=== PATIENT | female | born 1940 | race Caucasian/White ===

== ENCOUNTER 2019-09-14 15:43 | Outpatient (CLI) | payer MEDICARE, BC, SELFPAY ==
[2019-09-14 16:05] LABS: Basophils Absolute Auto 0.1 K/mm3 (0.0-0.1); Basophils Percent Auto 0.6 % (0.2-1.2); Eosinophils Absolute Auto 0.1 K/mm3 (0-0.3); Eosinophils Percent Auto 1.3 % (0-4.4); Hematocrit 43.9 % (37.0-47.0); Hemoglobin 14.2 g/dL (12.0-15.0); Immature Granulocyte Absolute 0.04 K/mm3 (0.00-0.031); Immature Granulocyte Percent A 0.5 % (0-0.5); Lymphocytes Percent Auto 21.2 % (18.3-44.2); Mean Corpuscular HGB Conc 32.3 g/dl (32-36); Mean Corpuscular Hemoglobin 29.2 pg (26-34); Mean Corpuscular Volume 90.3 fl (80-100); Mean Platelet Volume 12.5 fl (7.4-10.4); Monocytes Absolute Auto 0.7 K/mm3 (0.1-0.6); Monocytes Percent Auto 8.2 % (2.6-8.5); Neutrophils Absolute Auto 5.8 K/mm3 (1.3-6.7); Neutrophils Percent Auto 68.2 % (45.5-73.1); Platelet Count Result 141 k/mm3 (150-375); Red Blood Count 4.86 M/mm3 (4.2-5.4); Red Cell Distribution Width 13.6 % (11.5-14.5); White Blood Count 8.5 K/mm3 (4.5-10.0)
[2019-09-14 16:33] LABS: Iron 100 ug/dL (37-170)
[2019-09-14 16:35] LABS: Alanine Aminotransferase 14 U/L (4-35); Albumin Level 4.6 g/dL (3.5-5.1); Alkaline Phosphatase 100 U/L (38-126); Aspartate Amino Transferase 36 U/L (14-36); Bilirubin,Total 0.6 mg/dL (0.2-1.3); Blood Urea Nitrogen 31 mg/dL (7-17); Calcium 9.3 mg/dL (8.4-10.2); Carbon Dioxide 27 mmol/L (22-30); Chloride 99 mmol/L (98-107); Estimated Glomerular Filt Rate 54; Glucose 99 mg/dL (65-105); Lactate Dehydrogenase 408 U/L (313-618); Potassium 3.8 mmol/L (3.4-5.0); Sodium 139 mmol/L (137-145)
[2019-09-14 16:42] LABS: Percent Iron Saturation 24 % (20-50)
[2019-09-18 17:51] LABS: Platelet Antibody, Direct IgG NEGATIVE (NEGATIVE)
== END 2019-09-14 15:44 | disposition home or self-care (01) ==
PROVIDERS: PCP Internal Medicine; Visit Provider Internal Medicine Hematology & Oncology
DX: D69.59 Other secondary thrombocytopenia (principal)
CPT/HCPCS: 36415; 80053; 82607; 82728; 83540; 83550; 83615; 85025; 86023

== ENCOUNTER 2019-09-25 10:06 | Outpatient (CLI) | payer MEDICARE, BC, SELFPAY ==
--- NOTE | ~2019-09-25 | US_ITS ---
US abdomen complete EXAMINATION: US Abdomen Complete INDICATION: Thrombocytopenia PROCEDURE: Realtime High Resolution abdomen ultrasound. COMPARISON: No prior studies for comparison FINDINGS: Gallbladder within normal limits. No gallstones, pericholecystic fluid, gallbladder wall t hickening or biliary dilatation. Common bile duct measures 3 mm. Liver echotexture within normal limits without focal mass. Pancreas within normal limits. Pancreati c tail is obscured by bowel gas. Spleen is unremarkeable. Renal echotexture is within normal limits bilaterally without hydronephrosis, contour deforming mass or renal stone. Right kidney measures 9.9 cm. Left kidney measures 10.1 cm. There is atherosclerotic change of the aorta. No aneurysm.. Portal vein is patent. No sonographic Mur phy's sign indicated by the technologist. IMPRESSION: 1: Unremarkable abdominal ultrasound. Reviewed, dictated and finalized at location B.
== END 2019-09-25 10:07 | disposition home or self-care (01) ==
PROVIDERS: PCP Internal Medicine; Visit Provider Internal Medicine Hematology & Oncology
DX: D69.59 Other secondary thrombocytopenia (principal)
CPT/HCPCS: 76700

== ENCOUNTER 2019-12-31 10:35 | Outpatient (CLI) | payer MEDICARE, BC, SELFPAY ==
[2019-12-31 10:53] LABS: Basophils Percent Auto 0.5 % (0.2-1.2); Eosinophils Absolute Auto 0.1 K/mm3 (0-0.3); Eosinophils Percent Auto 1.1 % (0-4.4); Hemoglobin 13.9 g/dL (12.0-15.0); Immature Granulocyte Absolute 0.04 K/mm3 (0.00-0.031); Immature Granulocyte Percent A 0.5 % (0-0.5); Lymphocytes Absolute Auto 1.87 K/mm3 (0.9-3.2); Lymphocytes Percent Auto 21.2 % (18.3-44.2); Mean Corpuscular HGB Conc 32.3 g/dl (32-36); Mean Corpuscular Hemoglobin 28.7 pg (26-34); Mean Corpuscular Volume 88.8 fl (80-100); Mean Platelet Volume 11.8 fl (7.4-10.4); Monocytes Absolute Auto 0.6 K/mm3 (0.1-0.6); Monocytes Percent Auto 6.9 % (2.6-8.5); Neutrophils Absolute Auto 6.2 K/mm3 (1.3-6.7); Neutrophils Percent Auto 69.8 % (45.5-73.1); Platelet Count Result 156 k/mm3 (150-375); Red Blood Count 4.84 M/mm3 (4.2-5.4); Red Cell Distribution Width 13.7 % (11.5-14.5); White Blood Count 8.8 K/mm3 (4.5-10.0)
[2019-12-31 11:41] LABS: Lactate Dehydrogenase 442 U/L (313-618)
[2019-12-31 12:50] LABS: Folic Acid 8.7 ng/mL (2.76->20); Vitamin B12 > 1000.0 pg/mL (239-931)
== END 2019-12-31 10:36 | disposition home or self-care (01) ==
PROVIDERS: PCP Internal Medicine; Visit Provider Internal Medicine Hematology & Oncology
DX: D69.59 Other secondary thrombocytopenia (principal)
CPT/HCPCS: 36415; 82607; 82746; 83615; 85025

== ENCOUNTER 2020-01-04 14:32 | Outpatient (CLI) | payer MEDICARE, BC, SELFPAY ==
[2020-02-11 14:50] LABS: Platelet Antibody, Direct IgG NEGATIVE
== END 2020-01-04 14:33 | disposition home or self-care (01) ==
PROVIDERS: PCP Internal Medicine; Visit Provider Internal Medicine Hematology & Oncology
DX: D69.59 Other secondary thrombocytopenia (principal)
CPT/HCPCS: 36415; 86023

== ENCOUNTER 2020-04-07 10:28 | Outpatient (CLI) | payer MEDICARE, BC, SELFPAY ==
[2020-04-07 10:45] LABS: Basophils Percent Auto 0.5 % (0.2-1.2); Eosinophils Absolute Auto 0.1 K/mm3 (0-0.3); Eosinophils Percent Auto 1.2 % (0-4.4); Hematocrit 44.8 % (37.0-47.0); Hemoglobin 14.2 g/dL (12.0-15.0); Immature Granulocyte Absolute 0.02 K/mm3 (0.00-0.031); Immature Granulocyte Percent A 0.3 % (0-0.5); Lymphocytes Absolute Auto 1.57 K/mm3 (0.9-3.2); Lymphocytes Percent Auto 20.5 % (18.3-44.2); Mean Corpuscular HGB Conc 31.7 g/dl (32-36); Mean Corpuscular Hemoglobin 28.5 pg (26-34); Mean Platelet Volume 12.5 fl (7.4-10.4); Monocytes Absolute Auto 0.5 K/mm3 (0.1-0.6); Monocytes Percent Auto 6.6 % (2.6-8.5); Neutrophils Absolute Auto 5.4 K/mm3 (1.3-6.7); Neutrophils Percent Auto 70.9 % (45.5-73.1); Platelet Count Result 155 k/mm3 (150-375); Red Blood Count 4.98 M/mm3 (4.2-5.4); Red Cell Distribution Width 13.9 % (11.5-14.5); White Blood Count 7.7 K/mm3 (4.5-10.0)
[2020-04-07 13:41] LABS: Alanine Aminotransferase 18 U/L (4-35); Albumin Level 4.1 g/dL (3.5-5.1); Alkaline Phosphatase 93 U/L (38-126); Anion Gap 3 mmol/L (8-16); Aspartate Amino Transferase 37 U/L (14-36); Bilirubin,Total 0.5 mg/dL (0.2-1.3); Blood Urea Nitrogen 21 mg/dL (7-17); Carbon Dioxide 37 mmol/L (22-30); Chloride 102 mmol/L (98-107); Estimated Glomerular Filt Rate > 60; Glucose 95 mg/dL (65-105); Potassium 3.7 mmol/L (3.4-5.0); Sodium 142 mmol/L (137-145)
[2020-04-07 15:48] LABS: Folic Acid 10.4 ng/mL (2.76->20); Vitamin B12 > 1000.0 pg/mL (239-931)
== END 2020-04-07 10:29 | disposition home or self-care (01) ==
LOC: ANHLAB 10:29
PROVIDERS: PCP Internal Medicine; Visit Provider Internal Medicine Hematology & Oncology
DX: D69.59 Other secondary thrombocytopenia (principal)
CPT/HCPCS: 36415; 80053; 82607; 82746; 85025

== ENCOUNTER → 2020-08-16 09:28 | Outpatient (CLI) | payer MEDICARE, BC, SELFPAY ==
--- NOTE | ~2020-08-16 | CT_ITS ---
EXAMINATION: CT cervical spine wo con DATE: 08/16/2020 09:47 INDICATION: Cervical myelopathy. TECHNIQUE: Computed tomography (CT) of the cervical spine was performed without intravenous contrast. Automated exposure control and iterative reconstruction technique were employed. The dose-length pro duct was 139.30 mGy-cm. COMPARISON: Cervical spine radiographs 06/27/2009, head CT 06/27/2020 FINDINGS: There is a shunt catheter that extends from the third ventricle to the cervical subarachnoi d space. There are laminectomies at C1 and C2. There are changes of suboccipital decompression cranio basia. Bone alignment is normal. There is mildly decreased disc height at C4-C5 and C5-C6 and moderate ly decreased disc height at C6-C7. The following disc levels are specifically discussed: C2-C3: There is no uncovertebral joint osteoarthritis. There is mild right and severe left facet join t osteoarthritis. There is mild left neural foraminal stenosis. There is no central canal stenosis. C3-C4: There is mild left uncovertebral joint osteoarthritis. There is mild right and moderate left f acet joint osteoarthritis. There is mild left neural foraminal stenosis. There is mild central canal stenosis. C4-C5: There is mild right and moderate left uncovertebral joint osteoarthritis. There is moderate ri ght and severe left facet joint osteoarthritis. There is mild bilateral neural foraminal stenosis. Th ere is mild central canal stenosis. C5-C6: There is severe bilateral uncovertebral joint osteoarthritis. There is moderate right and mi re left facet joint osteoarthritis. There is moderate right and mild left neural foraminal stenosis. There is moderate central canal stenosis. C6-C7: There is severe right and moderate left uncovertebral joint osteoarthritis. There is moderate right and severe left facet joint osteoarthritis. There is mild bilateral neural foraminal stenosis. There is mild central canal stenosis. C7-T1: There is no uncovertebral joint osteoarthritis. There is severe bilateral facet joint osteoart hritis. There is mild bilateral neural foraminal stenosis. There is no central canal stenosis. IMPRESSION: 1. Moderate cervical spondylosis. Reviewed, dictated and finalized at location A.
== END ==
PROVIDERS: Visit Provider Psychiatry & Neurology Neurology
DX: G95.9 Disease of spinal cord, unspecified (principal); M47.813 Spondylosis without myelopathy or radiculopathy, cervicothoracic region; M48.03 Spinal stenosis, cervicothoracic region
CPT/HCPCS: 72125

== ENCOUNTER 2020-10-07 12:07 | Outpatient (CLI) | payer MEDICARE, BC, SELFPAY ==
[2020-10-07 12:33] LABS: Basophils Percent Auto 0.3 % (0.2-1.2); Eosinophils Absolute Auto 0.1 K/mm3 (0-0.3); Eosinophils Percent Auto 1.3 % (0-4.4); Hematocrit 43.1 % (37.0-47.0); Hemoglobin 13.7 g/dL (12.0-15.0); Immature Granulocyte Absolute 0.04 K/mm3 (0.00-0.031); Immature Granulocyte Percent A 0.5 % (0-0.5); Lymphocytes Percent Auto 22.8 % (18.3-44.2); Mean Corpuscular HGB Conc 31.8 g/dl (32-36); Mean Corpuscular Hemoglobin 28.5 pg (26-34); Mean Corpuscular Volume 89.8 fl (80-100); Mean Platelet Volume 12.7 fl (7.4-10.4); Monocytes Absolute Auto 0.7 K/mm3 (0.1-0.6); Monocytes Percent Auto 7.8 % (2.6-8.5); Neutrophils Absolute Auto 5.9 K/mm3 (1.3-6.7); Neutrophils Percent Auto 67.3 % (45.5-73.1); Platelet Count Result 145 k/mm3 (150-375); Red Cell Distribution Width 14.3 % (11.5-14.5); White Blood Count 8.8 K/mm3 (4.5-10.0)
[2020-10-07 16:38] LABS: Anion Gap 9 mmol/L (8-16); Blood Urea Nitrogen 26 mg/dL (7-17); Calcium 10.1 mg/dL (8.4-10.2); Carbon Dioxide 31 mmol/L (22-30); Chloride 98 mmol/L (98-107); Estimated Glomerular Filt Rate 54; Glucose 85 mg/dL (65-110); Potassium 4.1 mmol/L (3.4-5.0); Sodium 138 mmol/L (137-145)
[2020-10-07 17:36] LABS: Vitamin B12 > 1000.0 pg/mL (239-931)
[2020-10-07 21:18] LABS: Folic Acid 8.4 ng/mL (2.76->20)
== END 2020-10-07 12:08 | disposition home or self-care (01) ==
LOC: ANHLAB 12:12
PROVIDERS: Visit Provider Internal Medicine Hematology & Oncology
DX: D69.59 Other secondary thrombocytopenia (principal)
CPT/HCPCS: 36415; 80048; 82607; 82746; 85025

== ENCOUNTER 2021-07-10 11:06 | Outpatient (CLI) | payer MEDICARE, BC, SELFPAY ==
[2021-07-10 11:20] LABS: Basophils Percent Auto 0.4 % (0.2-1.2); Eosinophils Absolute Auto 0.1 K/mm3 (0-0.3); Eosinophils Percent Auto 1.4 % (0-4.4); Hematocrit 46.3 % (37.0-47.0); Immature Granulocyte Absolute 0.04 K/mm3 (0.00-0.031); Immature Granulocyte Percent A 0.5 % (0-0.5); Lymphocytes Absolute Auto 1.38 K/mm3 (0.9-3.2); Lymphocytes Percent Auto 17.7 % (18.3-44.2); Mean Corpuscular HGB Conc 30.2 g/dl (32-36); Mean Corpuscular Hemoglobin 27.9 pg (26-34); Mean Corpuscular Volume 92.4 fl (80-100); Mean Platelet Volume 12.8 fl (7.4-10.4); Monocytes Absolute Auto 0.7 K/mm3 (0.1-0.6); Monocytes Percent Auto 8.3 % (2.6-8.5); Neutrophils Absolute Auto 5.6 K/mm3 (1.3-6.7); Neutrophils Percent Auto 71.7 % (45.5-73.1); Platelet Count Result 164 k/mm3 (150-375); Red Blood Count 5.01 M/mm3 (4.2-5.4); Red Cell Distribution Width 14.6 % (11.5-14.5); White Blood Count 7.8 K/mm3 (4.5-10.0)
[2021-07-10 16:45] LABS: Alanine Aminotransferase 11 U/L (4-35); Albumin Level 4.6 g/dL (3.5-5.1); Alkaline Phosphatase 126 U/L (38-126); Anion Gap 7 mmol/L (8-16); Aspartate Amino Transferase 30 U/L (14-36); Bilirubin,Total 0.5 mg/dL (0.2-1.3); Blood Urea Nitrogen 23 mg/dL (7-17); Calcium 9.7 mg/dL (8.4-10.2); Carbon Dioxide 35 mmol/L (22-30); Chloride 100 mmol/L (98-107); Estimated Glomerular Filt Rate > 60; Glucose 95 mg/dL (65-110); Potassium 3.5 mmol/L (3.4-5.0); Sodium 142 mmol/L (137-145)
[2021-07-10 18:05] LABS: Vitamin B12 > 1000.0 pg/mL (239-931)
== END 2021-07-10 11:07 | disposition home or self-care (01) ==
PROVIDERS: Visit Provider Internal Medicine Hematology & Oncology
DX: D69.59 Other secondary thrombocytopenia (principal)
CPT/HCPCS: 36415; 80053; 82607; 85025

== ENCOUNTER 2022-07-06 11:31 | Outpatient (CLI) | payer MEDICARE, BC, SELFPAY ==
[2022-07-06 12:11] LABS: Basophils Percent Auto 0.2 % (0.2-1.2); Eosinophils Absolute Auto 0.1 K/mm3 (0-0.3); Eosinophils Percent Auto 0.6 % (0-4.4); Hematocrit 40.3 % (37.0-47.0); Immature Granulocyte Absolute 0.01 K/mm3 (0.00-0.031); Immature Granulocyte Percent A 0.1 % (0-0.5); Lymphocytes Absolute Auto 1.89 K/mm3 (0.9-3.2); Lymphocytes Percent Auto 22.7 % (18.3-44.2); Mean Corpuscular HGB Conc 32.3 g/dl (32-36); Mean Corpuscular Hemoglobin 28.8 pg (26-34); Mean Corpuscular Volume 89.2 fl (80-100); Mean Platelet Volume 12.4 fl (7.4-10.4); Monocytes Absolute Auto 0.6 K/mm3 (0.1-0.6); Monocytes Percent Auto 6.6 % (2.6-8.5); Neutrophils Absolute Auto 5.8 K/mm3 (1.3-6.7); Neutrophils Percent Auto 69.8 % (45.5-73.1); Platelet Count Result 165 k/mm3 (150-375); Red Blood Count 4.52 M/mm3 (4.2-5.4); Red Cell Distribution Width 13.8 % (11.5-14.5); White Blood Count 8.3 K/mm3 (4.5-10.0)
[2022-07-06 12:44] LABS: Alanine Aminotransferase 24 U/L (6-35); Albumin Level 4.6 g/dL (3.5-5.1); Alkaline Phosphatase 96 U/L (38-126); Anion Gap 6 mmol/L (8-16); Aspartate Amino Transferase 38 U/L (14-36); Bilirubin,Total 0.8 mg/dL (0.2-1.3); Blood Urea Nitrogen 23 mg/dL (7-17); Calcium 9.3 mg/dL (8.4-10.2); Carbon Dioxide 32 mmol/L (22-30); Chloride 101 mmol/L (98-107); Estimated Glomerular Filt Rate 60; Glucose 92 mg/dL (65-110); Potassium 3.4 mmol/L (3.4-5.0); Sodium 139 mmol/L (137-145)
== END 2022-07-06 11:32 | disposition home or self-care (01) ==
LOC: ANHLAB 11:33
PROVIDERS: Visit Provider Internal Medicine Hematology & Oncology
DX: D69.59 Other secondary thrombocytopenia (principal)
CPT/HCPCS: 36415; 80053; 82607; 85025

== ENCOUNTER 2024-06-22 10:52 | Outpatient (CLI) | payer MEDICARE, BC, SELFPAY ==
--- NOTE | ~2024-06-22 | US_ITS ---
EXAMINATION: US retroperitoneal comp DATE: 06/22/2024 11:21 INDICATION: Stage III chronic kidney disease TECHNIQUE: Multiple ultrasound grayscale images of the kidneys were obtained. COMPARISON: 09/25/2019 FINDINGS: The right kidney measures 8.9 x 3.6 x 4.6 cm. The left kidney measures 8.4 x 4.1 x 4.0 cm. The kidney s demonstrate normal echogenicity. 1.2 cm anechoic right renal cyst. There is no hydronephrosis in ei ther kidney. No stones identified. The bladder is normal. IMPRESSION: 1. 1.2 cm right renal cyst. Otherwise normal kidneys with no hydronephrosis. Reviewed, dictated and finalized at location A.
== END 2024-06-22 10:53 | disposition home or self-care (01) ==
LOC: MICIMG 10:54
PROVIDERS: PCP Internal Medicine; Visit Provider Specialist
DX: N28.1 Cyst of kidney, acquired (principal); N18.30 Chronic kidney disease, stage 3 unspecified
CPT/HCPCS: 76770

== ENCOUNTER 2024-06-22 12:02 | Outpatient (CLI) | payer MEDICARE, BC, SELFPAY ==
--- OUTSIDE RECORDS SUMMARY | 2024-06-22 13:25 | XMS_ITS | Referral Summary ---
Author Organization [facility] [address] [place] [id number] Care Team Providers Care Facility Maintenance Supervisor Name Role Phone Joao Rizo MD Primary Care Provide r Allergies No known active allergies Medications amLODIPine (NORVASC) 10 mg tablet 1 Active atorvastatin (LIPITOR) 80 mg tablet 1 Active C,E,zinc,copper [id number] (Ocuvite Adult 50 Plus) 250-5-1 mg capsule Ocuvite 1 TAB DAILY 0 Active calcium carbonate-vitam in D3 1500 mg (600 mg elemental) -200 units per tablet Calcium 600 1 TAB 2 TIMES DAILY 0 Active clopidogreL (PLAVIX) 75 mg tablet 1 Active vitamin E87-rpufl acid 0.5-1 mg tablet Vitamin B12 500mcg TK 1 Gummie PO QD Active hydroCHLOROthia zide (HYDRODIURIL) 25 mg tablet 1 Active mirtazapine (REMERON) 30 mg tablet [address] (PROTONIX) 40 mg EC tablet 1 Active pneumococcal 23-valent (Pneumovax-23) 25 mcg/0.5 mL vaccine Pneumovax-23 25 mcg/0.5 mL injection solution Active sertraline (ZOLOFT) 100 mg tablet 1 Active propranoloL (INDERAL) 20 mg tablet Take 1 tablet (20 mg total) by mouth daily 30 tablet 11 3 Active Active Problems Problem Noted Date Diagnosed Date Tremor Immunizations Immunization Administration Dates Next Due Influenza, Trivalent, Adjuvanted, Intramuscular 12/26/2018 Influenza, Trivalent, High D ose, Split, Preservative Free, Intramuscular 12/06/2016 Influenza, Trivalent, IM (MDV) 12/09/2018 Influenza, Unspecified 12/10/2019,12/11/2017 ZOSTER Recombinant 05/19/2019,02/04/2019 Social History Tobacco Use Types Packs/Day Years Used Date Smoking Tobacco: Former Cigarettes Smokeless Tobacco: Never Tobacco Cessation:Counseling Given: No Comments:quite 25 yrs ago Alcohol Use Standard Drinks/Week Comments No 0 (1 standard drink = 0.6 oz pur e alcohol) AUDIT-C Answer Date Recorded Q1: How often do you have a drink containing alc ohol? Never 11/02/2020 Average Number of Drinks Not on file 021 Frequency of Binge Drinking Not on file 10/10 Personal Safety Answer Date Recorded Getting School Help Needed Not on file 05/06 Comments Unknown Sex and Gender Information Value Date Recorded Sex Assigned at Not on file Legal Sex Female 6:45 AM [employer] Gender Identity Not on file Sexual Orientation Not on file Occupation Industry Job Start Date Job End Date Retired Not on file Not on file Not on file Last Filed Vital Signs Vital Sign Reading Time Taken Comments Blood Pressure 150/87 10/12/2022 11:17 AM CDT Pulse 67 10/12/2022 11:17 AM CDT Temperature - - Respiratory Rate - - Oxygen Saturation 93% 10/12/2022 11:17 AM CDT Inhaled Oxygen Concentration - - Weight 68.5 kg (151 lb) 10/12/2022 11:17 AM CDT Height 162.6 cm (5' 4 ) 10/12/2022 11:17 AM CDT Body Mass Index 25.92 10/12/2022 11:17 AM CDT Plan of Treatment Not on file Insurance MEDICARE BLUE TRADITIONAL OOS MEDICARE BLUE TRADITIONAL OOS Care Teams Facility Maintenance Supervisor Relationship Specialty Start Date End Date Joao Rizo MD [id number] [facility] [address] [place] [address] PCP - General Internal Medicine 11/21/17
--- OUTSIDE RECORDS SUMMARY | 2024-06-22 13:25 | XMS_ITS | CONTINUITY OF CARE DOCUMENT ---
Author Name zen reinierchary Address Unknown Organization [facility] Address [address] [place] [address] Phone [phone] Care Team Providers Care Supervisor [employer] Name Role Phone Mc Thomas MD Unavailable [phone] WILLIAN BETANCUR, GUY Unavailable [phone] GUY RIZO MD Unavailable [phone] PROBLEMS Condition Status Date Provider Notes Carotid artery stenosis, 50-69% LILLY active Mc Thomas MD Dyslipidemia active Mc Thomas MD Hypertension active Mc Thomas MD Parkinson's disease active Russell Villa rg Thrombocytopenia active Russell Haynes Leg edema, bilateral active Diana Ventimieddie efren BRASS SORTER ENCOUNTERS Date Type Provider Location Encounter Diag nosis - In-person encounter Office Visit Mc Thomas MD [place] [facility] - In-person encounter Office Visit Mc Thomas MD [facility] - In-person encounter Office Visit Mc Thomas MD [facility] - In-person encounter Office Visit Mc Thomas MD [facility] Leg edema, bilateral - In-person encounter Office Visit Mc Thomas MD [facility] - In-person encounter Office Visit Mc Thomas MD [facility] Thrombocytopenia - In-person encounter Office Visit Mc Thomas MD [facility] - In-person encounter Office Visit Mc Thomas MD [place] [facility] Carotid artery stenosis, 50-69% RICADyslipidemiaHyperten sionParkinson's disease VITAL SIGNS Date Observation Value Provider Body Mass Index (Ratio) 24.71 kg/m2 Carlos Alberto Garcia blood pressure, diastolic 58 mm[Hg] [facility], systolic 118 mm[Hg] Shelia [facility] oxygen saturation, oximetry 98 % [facility] respiratory rate E&M 12 /min [facility] pulse rate 65 /min [facility] weight E&M 144 [lb_av] [facility] height E&M 64 [in_i] [facility] blood pressure, cuff size regular [employer] Body Mass Index (Ratio) 26.95 kg/m2 Lucho Maxwellinari blood pressure, diastolic 92 mm[Hg] Melissa nkLogic blood pressure, systolic 154 mm[Hg] Yola kLog pulse rate 62 /min [facility] blood pressure, cuff size regular [facility] blood pressure, diastolic 92 mm[Hg] Clov[facility] rret blood pressure, systolic 154 mm[Hg] Jar sandip oxygen saturation, oximetry 98 % Alvaro respiratory rate E&M 12 /min weight E&M 157 [lb_av] Alvaro height E&M 64 [in_i] Alvaro y Body Mass Index (Ratio) 26.88 kg/m2 Skip Angulo blood pressure, diastolic 91 mm[Hg] Melquiades Landrum blood pressure, systolic 145 mm[Hg] Sarah Landrum blood pressure, cuff size regular Melquiades Landrum pulse rate 67 /min Adina Landrum respiratory rate E&M 20 /min Adina Landrum oxygen saturation, oximetry 98 % Adina Landrum height E&M 64 [in_i] Adina Landrum weight E&M 156.6 [lb_av] Adina Landrum Body Mass Index (Ratio) 27.80 kg/m2 Francisco Gee blood pressure, cuff size regular Ri jenni Roger blood pressure, diastolic 78 mm[Hg] Ri jenni Roger blood pressure, systolic 131 mm[Hg] Ced deana Roger oxygen saturation, oximetry 97 % Kya Roger respiratory rate E&M 16 /min Gabriel Roger pulse rate 63 /min Kya sierra weight E&M 162 [lb_av] Kya Campbell son height E&M 64 [in_i] Kya sierra Body Mass Index (Ratio) 29.01 kg/m2 Rozina Hall blood pressure, diastolic 83 mm[Hg] Melissa nkLogic blood pressure, systolic 159 mm[Hg] Yola kLogic blood pressure, cuff size regular Sa ra Kauffman blood pressure, diastolic 83 mm[Hg] Sa ra Kauffman blood pressure, systolic 159 mm[Hg] Marga a Kauffman oxygen saturation, oximetry 94 % Caty Kauffman respiratory rate E&M 17 /min Caty Si ms pulse rate 62 /min Caty Kauffman weight E&M 169 [lb_av] Caty Kauffman height E&M 64 [in_i] Caty Kauffman Body Mass Index (Ratio) 30.21 kg/m2 Lyle Haynes blood pressure, cuff size regular Clovis Napier RN blood pressure, diastolic 64 mm[Hg] Clovis Napier RN blood pressure, systolic 140 mm[Hg] Reagan Napier RN oxygen saturation, oximetry 93 % Reagan Napier respiratory rate E&M 22 /min Reagan Irizarry [facility] pulse rate 64 /min Reagan Napier weight E&M 176 [lb_av] Reagan [facility] Body Mass Index (Ratio) 30.21 kg/m2 Lyle Haynes blood pressure, diastolic 74 mm[Hg] Yovany arzate Nat blood pressure, systolic 136 mm[Hg] Susanne eri Johns oxygen saturation, oximetry 96 % Janellecarito Johns pulse rate 63 /min Janelle Lian Cain weight E&M 176 [lb_av] Janelle Lian Cain height E&M 64 [in_i] Janelle Lian Cain Body Mass Index (Ratio) 29.04 kg/m2 Lyle dunawayer Ivy blood pressure, resting Yes Mc Thomas MD blood pressure, diastolic 76 mm[Hg] Marlys Vazquez blood pressure, systolic 152 mm[Hg] Estefani Vazquez oxygen saturation, oximetry 90 % Williams Vazquez respiratory rate E&M 18 /min Heidi Vazquez pulse rate 65 /min Williams zaidi weight E&M 169.2 [lb_av] Williams lozano height E&M 64 [in_i] Williams zaidi ALLERGIES No Known Drug Allergies RESULTS Date Observation Value Provider Reference Range Interpretation Location LDL cholesterol, serum 83 mg/dL Russell Haynes vitamin D 25-hydroxy, serum 35.1 ng/mL [facility] thyroid stimulating hormone, serum 0.953 u[IU]/mL [facility] platelet count 152 10*3/mm3 [facility] platelet count 152 10*3/uL [facility] red blood cell distribution width 15.2 % [facility] mean corpuscular hemoglobin concentration, RBC 31.5 g/dL [facility] mean corpuscular hemoglobin, RBC 28.2 pg [facility] mean corpuscular volume, RBC 89.5 fL [facility] hematocrit, blood 45.1 % [facility] hemoglobin, blood 14.2 g/dL [facility] erythrocyte (RBC) count 5.04 10*6/mm3 [facility] leukocyte count, blood 7.7 10*3/mm3 [facility] triglyceride, serum, fasting 99 mg/dL [facility] HDL cholesterol, serum 90 mg/dL [facility] cholesterol, serum 202 mg/dL [facility] protein, total, serum 7.5 g/dL [facility] albumin, serum 4.4 g/dL [facility] bilirubin, serum, total 0.60 mg/dL [facility] alkaline phosphatase, serum 106 1/L [facility] alanine aminotransferase (SGPT), serum 9 1/L [facility] aspartate aminotransferase (SGOT), serum 26 1/L [facility] calcium, serum 10.3 mg/dL [facility] blood glucose, random 91 mg/dL [facility] creatinine, serum 0.75 mg/dL [facility] urea nitrogen, blood 22 mg/dL [facility] carbon dioxide, serum, total 33 mmol/L [facility] chloride, serum 100 mmol/L [facility] potassium, serum 38 mmol/L [facility] sodium, serum 142 mmol/L [facility] LDL cholesterol, serum 92 mg/dL [facility] HISTORY OF MEDICATION USE Medication Status Instructions Dates Provider Indications Com ments furosemide 20 mg tablet active Take 1 tablet by mouth once a day Mc Thomas MD furosemide 40 mg tablet completed - Mc Thomas MD losartan 100 mg tablet active TAKE 1 TABLET DAILY Yumiko Tristan RN clopidogrel 75 mg tablet active TAKE 1 TABLET DAILY [employer] losartan 100 mg tablet completed Take 1 tablet by mouth once a day - [facility] mg tablet completed Take 1 tab let by mouth once a day - Mc Thomas MD atorvastatin 80 mg tablet active TAKE 1 TABLET DAILY [employer] clopidogrel 75 mg tablet completed Take 1 tablet once a day - Alvaro New pantoprazole 40 mg tablet,delayed release (DR/EC) active 1 tablet once a day Williams Vazquez OCUVITE ADULT FORMULA CAPS active once a day Williams Vazquez cetirizine 10 mg tablet active once a day Williams Vazquez atorvastatin 80 mg tablet completed Take one tablet daily - [facility] calcium carbonate 600 mg calcium (1,500 mg) tablet active 1 tablet by mouth once a day Williams Vazquez sertraline 100 mg tablet active 1.5 tablet once a day Williams Vazquez mirtazapine 30 mg tablet active 1 tablet once a day Williams Vazquez hydrochlorothiazide 25 mg tablet completed 1 tablet once a day - Mc Thomas MD propranolol 20 mg tablet completed 1 tablet three times a day - Diana DEE carbidopa-levodopa 25-250 mg tablet active 1 tablet three times a day Williams Vazquez amlodipine 10 mg tablet completed 1 tablet once a day - Diana DEE SOCIAL HISTORY Date Observation Value Provider drug use no Carlos Alberto Garcia alcohol use no Carlos Alberto Garcia smoking status Never smoker Carlos Alberto Garcia drug use no Mc Thomas MD alcohol use no Mc Thomas MD smoking status Never smoker Mc Olivares social history reviewed E&M revi ewed - no changes required Mc Thomas MD smoking status Never smoker Adina Landrum drug use no Diana Ventimig efren [place] alcohol use no Diana Ventimig efren [place] social history E&M S moking History: Misael strong is a former smoker. Mc Thomas MD social history reviewed E&M revi ewed - no changes required Mc Thomas MD smoking, year quit 1985 Kya Roger cigarette use yes Kya Neetu rspretty smoking status Former smoker Kya bravo social history E&M S moking History: Misael strong is a former smoker. Hoda Hall social history reviewed E&M revi ewed - no changes required Hoda Hall cigarette use yes Caty Kauffman smoking status Former smoker Caty Gonzalezs smoking, year quit 1985 [facility] cigarette use yes [facility] smoking status Former smoker Russell [facility] social history reviewed E&M revi ewed - no changes required Russell Ivy smoking, year quit 1985 Janelle oliveroson-Ant cigarette use yes Janelle Juárez -Ant smoking status Former smoker Janelle Mehrdad on-Ant social history reviewed E&M revi ewed - no changes required Janelle Johns social history E&M Smoking Histo ry: Misael strong is a former smoker. Mc Thomas MD social history reviewed E&M revi ewed - no changes required Mc Thomas MD smoking, year quit 1985 Williams Vazquez cigarette use yes Williams lozano smoking status Former smoker Williams Carson FAMILY HISTORY Family Member Condition Full Brother Family History of Hy pertension: Father Family History of Co ronary Artery Disease: Father Family History of Hy pertension: INSURANCE PROVIDERS Payer name Policy type / Coverage type [place] [employer] ID [facility] [id number] 1 [place] Medicare [id number] ADVANCE DIRECTIVES Name Date DISCUSSED - NO DECISION MADE TREATMENT PLAN Date Name Performer [id number],S, Rocco Angulo [id number],B,L E venous ultrasound on 03/27/2022 showed no evidence of a deep vein thrombosis of the lower extremities bilaterally and significant venous insufficiency of the great saphenous vein bilaterally. At this time, she reports improvment in her swelling after stopping amlodipine. Rocco Angulo [id number],SMc MD [id number],SMc MD [id number],SMc MD [id number],C, H er updated medication list for this problem includes: Atorvastatin 80 Mg Tablet (Atorvastatin) ..... Take 1 tablet daily Diana Ramos [facility] [id number],C,w orsening over the last few months. She denies any pain with ambulation. May be secondary to venous insufficiency. Her last echo 2 years ago did suggest some diastolic dysfunction. Will update labs and echo to determine if r/t CHF. She will also have standing venous doppler to look for venous insufficiency. Meds adjusted as noted above. Will f/u post testing or sooner if needed. If diastolic dysfunction consider addition of Jardiance of Farxiga for LE edema O rders: 9 9214 MOD 30-39min (CPT-61718) Diana Ventimiglia [facility] [id number],C, O tracey doing well. Denies chest pain or SOB. Carotid duplex was normal. Continues on current medications. Diana Ramos [facility] [id number],S,B P at goal. She however, has bilateral LE edema may be r/t CCB. will stop amlodopin and transition to losartan B P today: 131/78 P rior BP: 159/83 (02/15/2021) The following medications were removed from the medication list: Amlodipine 10 Mg Tablet (Amlodipine) ..... 1 tablet once a day Propranolol 20 Mg Tablet (Propranolol) ..... 1 tablet three times a day Her updated medication list for this problem includes: Losartan 50 Mg Tablet (Losartan) ..... Take 1 tablet by mouth once a day Hydrochlorothiazide 25 Mg Tablet (Hydrochlorothiazide) ..... 1 tablet once a day Diana Ramos [facility] [id number],S, H er updated medication list for this problem includes: Atorvastatin 80 Mg Tablet (Atorvastatin) ..... Take 1 tablet daily [facility] [id number],C, B P today: 159/83 P rior BP: 140/64 (01/25/2020) Labs Reviewed: C reat: 0.75 (08/11/2018) C hol: 202 (08/11/2018) HDL: 90 (08/11/2018) LDL: 83 (12/28/2019) T (08/11/2018) Her updated medication list for this problem includes: Hydrochlorothiazide 25 Mg Oral Tablet (Hydrochlorothiazide) ..... One tab daily Propranolol Hcl 20 Mg Oral Tablet (Propranolol hcl) ..... 1 tab 3 times daily Amlodipine Besylate 10 Mg Oral Tablet (Amlodipine besylate) ..... One tab. daily Hoda Hall [id number],S, S ees neurology. Hoda Hall [id number],Hoda Reese [id number],S,O tracey doing well. Denies chest pain or SOB. Carotid duplex was normal. Continues on current medications. Hoda Hall Cardiology:will repeat carotid d [facility]liverio [facility]:This visi t has been a part of the consistent, comprehensive, and ongoing management of the chronic medical condition(s) listed above for the patient. Her updated medication list for this problem includes: Atorvastatin 80 Mg Tablet (Atorvastatin) ..... Take 1 tablet daily [facility]:This visi t has been a part of the consistent, comprehensive, and ongoing management of the chronic medical condition(s) listed above for the patient. BP today: 118/58 P rior BP: 154/92 (04/29/2023) Labs Reviewed: C reat: 0.75 (08/11/2018) C hol: 202 (08/11/2018) HDL: 90 (08/11/2018) LDL: 83 (12/28/2019) T (08/11/2018) The following medications were removed from the medication list: Hydrochlorothiazide 25 Mg Tablet (Hydrochlorothiazide) ..... 1 tablet once a day Her updated medication list for this problem includes: Furosemide 20 Mg Tablet (Furosemide) ..... Take 1 tablet by mouth once a day Furosemide 40 Mg Tablet (Furosemide) Losartan 100 Mg Tablet (Losartan) ..... Take 1 tablet daily [facility]:will resu me lasix 20 mg once daily and stop hydrochlorothiazide [facility]: H er updated medication list for this problem includes: Atorvastatin 80 Mg Tablet (Atorvastatin) ..... Take 1 tablet daily [facility]: B P today: 154/92 P rior BP: 145/91 (04/11/2022) Labs Reviewed: C reat: 0.75 (08/11/2018) C hol: 202 (08/11/2018) HDL: 90 (08/11/2018) LDL: 83 (12/28/2019) T (08/11/2018) Her updated medication list for this problem includes: Losartan 100 Mg Tablet (Losartan) ..... Take 1 tablet daily Hydrochlorothiazide 25 Mg Tablet (Hydrochlorothiazide) ..... 1 tablet once a day [facility]:She has h x of moderate right carotid stenosis. We reviewed carotid duplex and echo. [facility]:Overall d oing well, No CP, SOB. No neurological events. Occasional leg swelling but she tolerates it well. She has hx of moderate right carotid stenosis. We reviewed carotid duplex and echo. [facility] Rocco Angulo Cardiology:LE venous ultrasound on 03/27/2022 showed no evidence of a deep vein thrombosis of the lower extremities bilaterally and significant venous insufficiency of the great saphenous vein bilaterally. At this time, she reports improvment in her swelling after stopping amlodipine. Rocco Angulo Cardiology Mc Thomas MD Cardiology Mc Thomas MD Cardiology Mc Thomas MD Cardiology: H er updated medication list for this problem includes: Atorvastatin 80 Mg Tablet (Atorvastatin) ..... Take 1 tablet daily Diana Richard [facility] Cardiology:worsening over the last few months. She denies any pain with ambulation. May be secondary to venous insufficiency. Her last echo 2 years ago did suggest some diastolic dysfunction. Will update labs and echo to determine if r/t CHF. She will also have standing venous doppler to look for venous insufficiency. Meds adjusted as noted above. Will f/u post testing or sooner if needed. If diastolic dysfunction consider addition of Jardiance of Farxiga for LE edema O rders: 9 9214 MOD 30-39min (CPT-71370) Diana Ramos [facility] Cardiology: O verall doing well. Denies chest pain or SOB. Carotid duplex was normal. Continues on current medications. Diana Ramos [facility] Cardiology:BP at goa l. She however, has bilateral LE edema may be r/t CCB. will stop amlodopin and transition to losartan B P today: 131/78 P rior BP: 159/83 (02/15/2021) The following medications were removed from the medication list: Amlodipine 10 Mg Tablet (Amlodipine) ..... 1 tablet once a day Propranolol 20 Mg Tablet (Propranolol) ..... 1 tablet three times a day H er updated medication list for this problem includes: Losartan 50 Mg Tablet (Losartan) ..... Take 1 tablet by mouth once a day Hydrochlorothiazide 25 Mg Tablet (Hydrochlorothiazide) ..... 1 tablet once a day Diana Ramos [facility] Cardiology: H er updated medication list for this problem includes: Atorvastatin 80 Mg Tablet (Atorvastatin) ..... Take 1 tablet daily [facility]: B P today: 159/83 P rior BP: 140/64 (01/25/2020) Labs Reviewed: C reat: 0.75 (08/11/2018) C hol: 202 (08/11/2018) HDL: 90 (08/11/2018) LDL: 83 (12/28/2019) T (08/11/2018) Her updated medication list for this problem includes: Hydrochlorothiazide 25 Mg Oral Tablet (Hydrochlorothiazide) ..... One tab daily Propranolol Hcl 20 Mg Oral Tablet (Propranolol hcl) ..... 1 tab 3 times daily Amlodipine Besylate 10 Mg Oral Tablet (Amlodipine besylate) ..... One tab. daily [facility] Cardiology: S ees neurology. [facility] Cardiology [facility]oda [facility] eyer Cardiology:Overall d oing well. Denies chest pain or SOB. Carotid duplex was normal. Continues on current medications. [facility] Cardiology:Plt: 147 (11/11/2018) -> 121 (08/25/2019) -> 132 (12/28/2019) Per PCP. Russell Haynes Cardiology:She is no t sure if she is taking Lipitor 40mg or 80mg daily. Recommend to take 80mg daily. CHOL: 180 (12/28/2019) LDL: 92 (12/28/2019) HDL: 84 (12/28/2019) T (12/28/2019) Russell [facility] Cardiology:BP today: 140/64 P rior BP: 136/74 (01/07/2019) Her updated medication list for this problem includes: Hydrochlorothiazide 25 Mg Oral Tablet (Hydrochlorothiazide) ..... One tab daily Propranolol Hcl 20 Mg Oral Tablet (Propranolol hcl) ..... 1 tab 3 times daily Amlodipine Besylate 10 Mg Oral Tablet (Amlodipine besylate) ..... One tab. daily [facility] Cardiology:Carotid d uplex showed no significant change from last year (50-69% stenosis of the LILLY). Will obtain f/u duplex in a year. [facility] Cardiology:LDL was 9 2 and it is recommend to increase Lipitor to 80mg daily to achieve goal of 70 or less. Pt will discuss this with her PCP, Dr. Rizo. Her updated medication list for this problem includes: Atorvastatin Calcium 40 Mg Oral Tablet (Atorvastatin calcium) ..... 1 tab once daily [facility] Cardiology:BP today: 136/74 P rior BP: 152/76 (12/02/2017) Her updated medication list for this problem includes: Hydrochlorothiazide 25 Mg Oral Tablet (Hydrochlorothiazide) ..... One tab daily Propranolol Hcl 20 Mg Oral Tablet (Propranolol hcl) ..... 1 tab 3 times daily Amlodipine Besylate 10 Mg Oral Tablet (Amlodipine besylate) ..... One tab. daily [facility] Cardiology:Carotid d uplex showed no change from last year (50-69% stenosis of the LILLY). Will schedule her for yearly f/u duplex. [facility] Cardiology:Sees neurology. Miya romero [facility] Cardiology:BP today: 152/76 Her updated medication list for this problem includes: Hydrochlorothiazide 25 Mg Oral Tablet (Hydrochlorothiazide) ..... One tab daily Propranolol Hcl 20 Mg Oral Tablet (Propranolol hcl) ..... 1 tab 3 times daily Amlodipine Besylate 10 Mg Oral Tablet (Amlodipine besylate) ..... One tab. daily Russell Haynes Cardiology:She was r ecently started on Atorvastatin. Goal LDL < 70. Russell Haynes Cardiology:50-69% st enosis LILLY. F/u carotid duplex in 1 year. Russell Haynes Date Name Carotid Duplex Bilat eral Complete Echo Carotid Duplex Bilat eral Complete Echo Carotid Duplex Bilat eral Complete Echo HEPATIC FUNCTION MINAYA EL RPM (remote patient monitoring) LIPID PANEL Venous Doppler Bilat eral LE - Reflux Complete Echo CBC (INCLUDES DIFF/P LT) PROBNP, N TERMINAL BASIC METABOLIC PANE L W/EGFR Carotid Duplex Bilat eral Complete Echo Complete Echo Carotid Duplex Bilat eral Carotid Duplex Bilat eral Carotid Duplex Bilat eral Complete Echo HISTORY OF PROCEDURES Procedure Date Procedure Name Provider Procedure Notes S tatus Complex e/m visit add on Mc Thomas MD completed EKG Mc Thomas MD completed EKG Mc Thomas MD completed EKG Mc Thomas MD completed EKG Mc Thomas MD completed EKG Mc Thomas MD completed EKG Mc Thomas MD completed
--- OUTSIDE RECORDS SUMMARY | 2024-06-22 13:25 | XMS_ITS ---
Author Organization [facility] Office Address [address] [facility] [address] [facility] [address] [place] [address] Care Team Providers Care Franchise Specialist Name Role Phone Elliott Abel Unavailable [phone] SINDY DORSEY Unavailable [phone] PROBLEMS Problem Type ICD Code Onset Dates Problem Status W/U Status Risk SNOMED Code Notes Problem Chronic kidney disease, stage 3 unspecified (N18.30) Active confirmed Chronic kidney disease stage 3 (disorder) (400780327) Problem Essential hypertension (I10) Active confirmed Essential hypertension (92921342) Problem CAD (coronary artery disease) (I25.10) Active confirmed Coronary artery disease (42196519) Problem Disorder of mineral metabolism, 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 Disorder of mineral metabolism (13359955) Problem Cerebral infarction, unspecified (I63.9) Active confirmed Cerebral infarction (547512282) Problem 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) Active confirmed Syringomyelia and syringobulbia (071949501) Encounters Encounter Location Date Provider Diagnosis [place] [facility] [address] [facility] [address] [place] [address] 06/05/2024 Abel Gallagher Chronic kidney disease, stage 3 unspecified N18.30 ; Essential hypertension I10 ; CAD (coronary artery disease) I25.10 ; Disorder of mineral metabolism, unspecified E83.9 ; Cerebral infarction, unspecified I63.9 and Syringomyelia and syringobulbia G95.0 ASSESSMENTS Encounter Date Diagnosis Assessment Notes Treatment Notes Treatment Clinical Notes Section Notes 06/05/2024 Chronic kidney disease, stage 3 unspecified (ICD-10 - N18.30) 06/05/2024 Essential hypertension (ICD-10 - I10) 06/05/2024 CAD (coronary artery disease) (ICD-10 - I25.10) 06/05/2024 Disorder of mineral metabolism, unspecified (ICD-10 - E83.9) 06/05/2024 Cerebral infarction, unspecified (ICD-10 - I63.9) 06/05/2024 Syringomyelia and syringobulbia (ICD-10 - G95.0) PLAN OF TREATMENT Next Appt Details Provider Name:Abel Gallagher , 06/26/2024 02:15:00 PM, [address] [facility], [facility] [address], [place], [place], [facility], Progress Notes * Keerthi BERGMAN KDOB: [birth year] (83 yo F)Acc No.[id number]:06/05/2024 Progress Notes Patient: Keerthi BERGMAN Provider: MD CECILIA, F.Ron.C.P, F.A.S.N. :1940 Age:83 Y Sex:Female Date:06/05/2024 Address:[address] [place] [address] Subjective: * Chief Complaints: * * Medical History: Objective: Assessment: * Assessment: 1. Chronic kidney disease, stage 3 unspecified - N18.30 (Primary) 2. Essential hypertension - I10 3. CAD (coronary artery disease) - I25.10 4. 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 Cerebral infarction, unspecified - I63.9 6. Syringomyelia and syringobulbia - G95.0 Plan: * Treatment: * Billing Information: * Visit Code: 85644 Office Visit, New Pt., Level 5. * Procedure Codes: * Sign off status: Pending * Provider: MD CECILIA, F.Ron.C.P, F.A.S.N. Date: 06/05/2024
--- OUTSIDE RECORDS SUMMARY | 2024-06-22 13:25 | XMS_ITS | Clinical Summary ---
Author Organization [facility] Daryl Miller Address [address] [place] [address] Care Team Providers Care Associate Application Developer Name Role Phone Greyson Rizo MD Primary Care Provider Allergies No known active allergies Medications hydroCHLOROthiazid e 25 mg tablet 07/13/19 20 Active carbidopa-levodopa (SINEMET) 25-250 mg tablet 07/24/19 20 Active amoxicillin (AMOXIL) 500 mg capsule amoxicillin 500 mg capsule TAKE 4 CAPSULES BY MOUTH 1 HOUR PRIOR TO APPOINTMENT Active cetirizine (ZyrTEC) 10 mg tablet ZyrTEC Allergy 10 MG Oral Tablet QTY: 0 tablet Days: 0 Refills: 0 Written: 11/06/17 Patient Instructions: 1 tab daily 11/07/19 18 Active clopidogreL (PLAVIX) 75 mg Tablet 07/17/19 20 Active mirtazapine (REMERON) 30 mg tablet every 24 hours. Acti ve propranoloL (INDERAL) 20 mg tablet 07/24/19 20 Active sertraline (ZOLOFT) 100 mg tablet 09/16/19 20 Active Vitamin X25-Nukrr Acid 0.5-1 mg Tablet Vitamin B12 500mcg TK 1 Gummie PO QD Active pneumococcal polysaccharide vaccine, PPSV23, (pneumovax 23) 25 mcg/0.5 mL Solution Pneumovax-23 25 mcg/0.5 mL injection solution Active atorvastatin (LIPITOR) 80 mg tablet 01/27/20 20 Active calcium-vitamin D3 (Calcium 600 + D,3,) 600 mg(1,500mg) -200 unit Tablet Calcium 600 1 TAB 2 TIMES DAILY 08/31/19 20 Active C,E,zinc,copper 60-kllxi6i-drv (Ocuvite Adult 50 Plus) 250-5-1 mg Capsule Ocuvite 1 TAB DAILY 08/31/19 20 Active losartan (COZAAR) 100 mg tablet Take 100 mg by mouth daily. 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 Family History Medical History Relation Name Comments Heart Disease Father Cancer Mother Heart Disease Mother Relation Name Status Comments Brother Alive Daughter Alive Father Mother Alive Sister Alive Social History Tobacco Use Types Packs/Day Years Used Date Smoking Tobacco: Former Cigarettes 1 25 0 09/14/1959 - 09/13/1984 Smokeless Tobacco: Never Tobacco Cessation:Counseling Given: Not Answered Alcohol Use Standard Drinks/Week Comments Yes 0 (1 standard drink = 0.6 oz pur e alcohol) OCCASIONLLY Comments No Sex and Gender Information Value Date Recorded Sex Assigned at Not on file Legal Sex Female 8:49 AM CDT Gender Identity Not on file Sexual Orientation Not on file Last Filed Vital Signs Vital Sign Reading Time Taken Comments Blood Pressure 143/65 07/11/2022 10:53 AM CDT Pulse 59 07/11/2022 10:49 AM CDT Temperature 36.3 C (97.3 F) 07/11/2022 10:49 AM CDT Respiratory Rate 10 07/11/2022 10:49 AM CDT Oxygen Saturation 100% 07/11/2022 10:49 AM CDT Inhaled Oxygen Concentration - - Weight 71.9 kg (158 lb 9.6 oz) 07/11/2022 10:49 AM CDT Height 160 cm (5' 3 ) 07/11/2021 11:31 AM CDT Body Mass Index 28.09 07/11/2021 11:31 AM CDT Plan of Treatment Health Maintenance Due Date Last Done Comments DTAP/TDAP/TD VACCINES (1 - Tdap) 1959 Traditional Medicare (ACO) A nnual Wellness Visit 1959 PNEUMOCOCCAL VACCINE 50+ YEA RS (1 of 1 - PCV) 1992 OSTEOPOROSIS SCREENING 11/14/2007 RSV VACCINE (60+ or ) (1 - 1-dose 75+ series) 2017 INFLUENZA VACCINE (#1) 2023 0, 12/26/2018, 12/09/2018, Additional history exists ZOSTER VACCINE Completed 05/19/2019, 02/04/2019 COLORECTAL SCREENING Discontinued 07/05/2021 Colorectal Cancer Screening Discontinued FIT-DNA Q 3 years Discontinued FIT/FOBT Q 1 year Discontinued Flex Sig/CT Colonography Q 5 years Discontinued Insurance [facility] MEDICARE PART A AND B Care Teams Associate Application Developer Relationship Specialty Start Date End Date Greyson Rizo MD PCP - General Internal Medicine 09/02/19
--- OUTSIDE RECORDS SUMMARY | 2024-06-22 13:25 | XMS_ITS | Patient Health Record ---
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) Active confirmed Syringomyelia and syringobulbia (275028971) Problem Cerebral infarction, unspecified (I63.9) Active confirmed Cerebral infarction (168994934) Problem Essential hypertension (I10) Active confirmed Essential hypertension (46185922) Problem Chronic kidney disease, stage 3 unspecified (N18.30) Active confirmed Chronic kidney disease stage 3 (disorder) (396253489) Problem CAD (coronary artery disease) (I25.10) Active confirmed Coronary artery disease (87149228) Encounters Encounter Location Date Provider Diagnosis [place] [facility] [address] [facility] [address] [place] [address] 06/05/2024 Abel Gallagher Chronic kidney disease, stage [...] Name:Abel Gallagher , 06/26/2024 02:15:00 PM, [address] [facility], [facility] [address], [place], [address],
--- OUTSIDE RECORDS SUMMARY | 2024-06-22 13:25 | XMS_ITS | Encounter Summary ---
Author Organization [facility] Healthcare Address [address] [place] [address] Care Team Providers Care Church History Professor Name Role Phone Joao Rizo MD Primary Care Provide r Encounter Details Date Type Department Care Team (Late st Contact Info) Description 11/10/2020 Telephone [facility] Radiology [address] [place] [address] Manolo Jimenez MD [address] [place] [address] Social History Tobacco Use Types Packs/Day Years Used Date Smoking Tobacco: Former Cigarettes Smokeless Tobacco: Never Comments:quite 25 yrs ago Alcohol Use Standard Drinks/Week Comments No 0 (1 standard drink = 0.6 oz pur e alcohol) AUDIT-C Answer Date Recorded Q1: How often do you have a drink containing alc ohol? 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
--- OUTSIDE RECORDS SUMMARY | 2024-06-22 13:25 | XMS_ITS | Clinical Summary ---
Author Organization [facility] Physician Office Building [address] [place] [address] Care Team Providers Care Metallurgical Engineer Name Role Phone Joao Rizo MD Primary Care Provide r Allergies No known active allergies Medications amLODIPine (NORVASC) 10 mg tablet 1 Active atorvastatin (LIPITOR) 80 mg tablet 1 Active C,E,zinc,copper [id number] (Ocuvite Adult 50 Plus) 250-5-1 mg capsule Ocuvite 1 TAB DAILY 0 Active calcium carbonate-vitam in D3 1500 mg (600 mg elemental) -200 units per tablet Calcium 600 1 TAB 2 TIMES DAILY 0 Active clopidogreL (PLAVIX) 75 mg tablet 1 Active vitamin M31-nwxjs acid 0.5-1 mg tablet Vitamin B12 500mcg [...] 12/09/2018 Influenza, Unspecified 12/10/2019,12/11/2017 ZOSTER Recombinant 05/19/2019,02/04/2019 Surgical History Surgery Date Site/Laterality Comments TOTAL HIP ARTHROPLASTY SPINE SURGERY 03/11/1989 - 03/10/1990 Shunt placed for Syringomyelia Medical History Medical History Date Comments Hypertension Parkinson's disease (HCC) Osteoporosis Anxiety Family History Medical History Relation Name Comments No Known Problems Father No Known Problems Mother No Known Problems Sister Relation Name Status Comments Father Mother Sister Social History Tobacco Use Types Packs/Day Years [...] on file Legal Sex Female 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 Gender Identity Not on file Sexual Orientation Not on file Occupation Industry Job Start Date Job End Date Retired Not on file Not on file Not on file Obstetrics History Last Filed Vital Signs Vital Sign Reading [...] 10/12/2022 11:17 AM CDT Plan of Treatment Health Maintenance Due Date Last Done Comments Depression Screening 1940 Fall Risk Assessment 1940 Osteoporosis Screening-Bone Density Scan 1940 DTaP/Tdap/Td Vaccine (1 - Tdap) 1953 Hepatitis B Screening 1960 Pneumococcal vaccine 65+ (1 of 1 - PCV) 1992 Well Visit 65+ 11/14/2007 Covid-19 Vaccine (5 - 2023-2 5 season) 2023 06/27/2021, 12/20/2020, 05/16/2020, Additional history exists Influenza Vaccine (#1) 2023 , 12/10/2019, 12/26/2018, Additional history exists Zoster Vaccine Completed 05/19/2019, 02/04/2019 Insurance MEDICARE [facility] MEDICARE [employer] Care Teams Metallurgical Engineer Relationship Specialty Start Date End Date Joao Rizo MD [address] [facility] [place] [address] [place] [address] PCP - General Internal Medicine 11/21/17
--- OUTSIDE RECORDS SUMMARY | 2024-06-22 13:26 | XMS_ITS | Data Portability ---
Author Organization [facility], Main Office Address [address] [place] [address] Care Team Providers Care Fleet Manager Name Role Phone GREYSON RIZO Primary Care Provider GREYSON RIZO Referring Provider [phone] MC THOMAS Identification Printing Machine Setter KEVIN RILEY Orthopedic Surgeon Assessment Encounter Date Assessment Date Assessment LastModified by Organization Details LastModified Time 03/25/2023 03/25/2023 05/28/2022: Hepatitis panel: Neg TSH/FT4/CMP: WNL GGT: WNL Lipids: WNL CMP: Gluc 109, BUN 27 11/26/2022: BUN 25 03/18/2023: Gluc 63L, BUN 32, GFR 53 Not available 03/25/2023 14:37:21 07/23/2023 07/23/2023 05/28/2022: Hepatitis panel: Neg TSH/FT4/CMP: WNL GGT: WNL Lipids: WNL CMP: Gluc 109, BUN 27 11/26/2022: BUN 25 03/18/2023: Gluc 63L, BUN 32, GFR 53 07/16/2023: BUN 23H, AST 41, Glob 2.5L, TP WNL Not available 07/22/2023 17:19:36 11/04/2023 11/04/2023 05/28/2022: Hepatitis panel: Neg TSH/FT4/CMP: WNL GGT: WNL Lipids: WNL CMP: Gluc 109, BUN 27 11/26/2022: BUN 25 03/18/2023: Gluc 63L, BUN 32, GFR 53 07/16/2023: BUN 23H, AST 41, Glob 2.5L, TP WNL 10/30/2023: BUN 24, AST 43 Not available 11/04/2023 15:38:32 04/06/2024 04/06/2024 05/28/2022: Hepatitis panel: Neg TSH/FT4/CMP: WNL GGT: WNL Lipids: WNL CMP: Gluc 109, BUN 27 11/26/2022: BUN 25 03/18/2023: Gluc 63L, BUN 32, GFR 53 07/16/2023: BUN 23H, AST 41, Glob 2.5L, TP WNL 10/30/2023: BUN 24, AST 43 03/12/2024: BUN 34, GFR 53 LDL 111 H/H 10.3/33.5 Not available 04/06/2024 16:15:13 Plan of Treatment Reminders Order Date Submit Date Provider Last Modified By Organization Details Last Modified Time Details Appointments Any 15 2024 01:15P Gerard bañuelos MD Not available Not available Not available Lab lipid panel, serum 2024 025 [email or web address] Not available 04/06/2024 16:40:30 CMP, serum or plasma 2024 025 [email or web address] Not available 04/06/2024 16:40:31 CBC w/ auto diff 2024 025 [email or web address] Not available 04/06/2024 16:40:31 TSH, serum or plasma 2024 025 [email or web address] Not available 04/06/2024 16:40:31 T4, free, serum 2024 025 Not available 04/06/2024 16:40:32 lipid panel, serum 2023 024 [email or web address] Not available 03/12/2024 14:42:36 CMP, serum or plasma 2023 024 Not available 03/12/2024 14:43:13 CBC w/ auto diff 2023 024 [email or web address] Not available 03/12/2024 14:43:50 TSH, serum or plasma 2023 024 [email or web address] Not available 03/12/2024 14:44:37 T4, free, serum 2023 024 [email or web address] Not available 03/12/2024 14:45:13 lipid panel, serum 2023 024 GUERLINE Not available 10/30/2023 18:34:42 CMP, serum or plasma 2023 024 GUERLINE Not available 10/30/2023 18:34:48 CBC w/ auto diff 2023 024 GUERLINE Not available 10/30/2023 18:07:58 TSH, serum or plasma 2023 024 GUERLINE Not available 10/30/2023 19:32:56 T4, free, serum 2023 024 GUERLINE Not available 10/30/2023 19:27:01 rapid SARS CoV 2 Ag, QL IA, respirato ry specimen [address] [facility], [address] [place], [address], 07/30/2023 15:59:18 rapid flu (A+B) [address] [facility], [address] [place], [address], 07/30/2023 15:59:18 rapid strep group A, throat [address] [facility], [address] [place], [address], 07/30/2023 15:59:19 lipid panel, serum 2023 024 GUERLINE Not available 07/16/2023 16:36:35 CMP, serum or plasma 2023 024 GUERLINE Not available 07/16/2023 16:36:31 CBC w/ auto diff 2023 024 GUERLINE Not available 07/16/2023 15:51:35 TSH, serum or plasma 2023 024 GUERLINE Not available 07/16/2023 16:41:16 T4, free, serum 2023 024 GUERLINE Not available 07/16/2023 16:38:43 Referral nephrolog ist referral 2024 025 ATHLAURENT Gallagher MD (Nephrology, [address], [address], [place], [address], 04/30/2024 08:55:17 hematolog ist referral - Please call patient to schedule an appointme nt. Thank you. 2024 025 [email or web address] Sravan Tierney MD, [address], [place], [address], 04/28/2024 17:53:39 cardiolog ist referral 2024 025 [email or web address] [place], [address], [address], [place], [address], 04/29/2024 15:09:52 nephrolog ist referral 2023 024 Abel Gallagher MD (Nephrology, [address], [address], [place], [address], 04/30/2024 08:13:00 cardiolog ist referral 2023 024 [email or web address] [place], [address], [address], [place], [address], 05/04/2024 18:05:38 nephrolog ist referral 2023 024 [email or web address] Abel Gallagher MD (Nephrology, [address], [address], [place], [address], 01/20/2024 14:17:13 cardiolog ist referral 2023 024 [email or web address] [place], [address], [address], [place], [address], 01/20/2024 14:17:12 nephrolog ist referral 2023 024 [email or web address] Abel Gallagher MD (Nephrology, [address], [address], [place], [address], 10/22/2023 16:43:04 hematolog ist referral 2023 024 [email or web address] Sravan Tierney MD, [address] [place], [address], 04/22/2023 09:10:14 cardiolog ist referral 2023 024 [email or web address] [place], [address], [address], [place], [address], 10/22/2023 16:42:31 Procedures None recorded. Surgeries None recorded. Imaging None recorded. Medication Orders levofloxa stefanie 750 mg tablet 2024 025 [email or web address] [id number], [address], [place], [address], 04/13/2024 10:13:32 levofloxa stefanie 750 mg tablet 2023 024 [email or web address] [id number], [address], [place], [address], 11/04/2023 15:11:48 Zyrtec 10 mg tablet 2023 024 GUERLINE [id number], [address], [place], [address], 07/23/2023 15:34:30 Patient TargetsNo targets recorded. Patient Instructions Encounter Date Encounter Id Patient Instructions Last Modified By Organization Details Last Modified Time 07/23/2023 [id number] dementia rating scale-2* marcus 2 Not available 07/24/2023 18:07:43 depression screening* chantella 2 Not available 07/24/2023 18:07:43 alcohol misuse* sujeywala 2 Not available 07/24/2023 18:07:43 Timed Up and Go test (TUG)* sujeywala 2 Not available 07/24/2023 18:07:43 multi-dimensiona l health assessment questionnaire* chantella 2 Not available 07/24/2023 18:07:43 Personalized a lt Plan and Screening Recommendations Advance Directives - Do you have one? Yes Advance Directives - Do we have your advance directive on file in your health record? No, please bring in a copy at your earliest convenience Primary Prevention/Interven tion (prevents or decreases the chance of common diseases from occurring) Smoking Risk: Non Smoker Alcohol Misuse Screening: Negative Weight: Appropriate Overwei ght continue your current weight loss efforts try to lose 5% of your body weight Physical activity: Need more exercise/physical activity decrease sitting time to no more than 5hr/day Nutrition: Good Average Refer to attached handout Heart-Healthy Diet: After Your Visit Fall Risk (screened today): Low Intermediate Refer to attached handout Preventing Falls: After your Visit Vaccines Pneumococcal: Ordered Recommended today Influenza: Your next one in the fall of this year Chronic Disease Risks Stroke: Low Risk Intermediate Risk I have no recommendations Heart Attack: Low risk Intermediate Risk I have no recommendations Clogging of the Arteries: Low risk Intermediate Risk I have no recommendations 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, Continue current treatment plan Secondary Prevention/Interven tion (detects treatable diseases before they may cause symptoms, disability, or ) Breast Cancer Screening with mammogram: Your next mammogram: Ordered Recommended today Recommended today, but you have declined Cervical/Uterine/Ov hayden Cancer Screening: Your next PAP/pelvic in: Referral to title lawyer Recomm ended today Recommended today, but you have declined Osteoporosis Screening: Your next DEXA in: Ordered Recomme nded today Recommended today, but you have declined Date Screening Last Performed: UTD Colon Cancer Screening: No screening necessary Date Screening Last Performed: UTD Eye Disease Screening: Ordered Recommended today Dementia Risk: Low Intermediate I have no recommendations Depression Screening: Negative Not available 07/23/2023 17:02:09 Reason for Referral Identification Printing Machine Setter Referral for Co ronary arteriosclerosis Referring Physician: Shun Bowser, Encounter Date: 03/25/2023 Referring Physician: Shun Bowser, Encounter Date: 03/25/2023 Space Scheduler Referral for Ch ronic kidney disease Referring Physician: Shun Bowser, Encounter Date: 03/25/2023 Identification Printing Machine Setter Referral for Co ronary arteriosclerosis Referring Physician: Shun Bowesr, Encounter Date: 07/23/2023 Space Scheduler Referral for Ch ronic kidney disease Referring Physician: Shun Bowser, Encounter Date: 07/23/2023 Identification Printing Machine Setter Referral for Co ronary arteriosclerosis Referring Physician: Shun Bowser, Encounter Date: 11/04/2023 Space Scheduler Referral for Ch ronic kidney disease Referring Physician: Shun Bowser, Encounter Date: 11/04/2023 Identification Printing Machine Setter Referral for Co ronary arteriosclerosis Referring Physician: Shun Bowser, Encounter Date: 04/06/2024 Space Scheduler Referral for Ch ronic kidney disease Referring Physician: Shun Bowser, Encounter Date: 04/06/2024 [facility]. Thank you. Referring Physician: Shun Bowser, Encounter Date: 04/06/2024 Results Created Date Observation Date Name Description Value Unit Range Abnormal Flag Note LastModifiedBy Organization Detail LastModifiedTime 03/18/19 24 03/18/2023 CBC/C OMPLE TE BLD COUNT W/DIF F white blood cells 6.9 x10'3 /uL 4.2-10 .8 Not Available [facility] (Lab) [address] [place], [address], 03/18/2023 18:41:04 03/18/19 24 03/18/2023 CBC/C OMPLE TE BLD COUNT W/DIF F red blood cells 4.34 x10'6 /uL 3.80-5 .20 Not Available [facility] (Lab) [address] [place], [address], 03/18/2023 18:41:04 03/18/19 24 03/18/2023 CBC/C OMPLE TE BLD COUNT W/DIF F hemoglobin 12.7 g/dL 12.0-1 5.6 Not Available [facility] (Lab) [address] [place], [address], 03/18/2023 18:41:04 03/18/19 24 03/18/2023 CBC/C OMPLE TE BLD COUNT W/DIF F hematocrit 40.6 % 35.7-4 5.7 Not Available [facility] (Lab) [address] [place], [address], 03/18/2023 18:41:04 03/18/19 24 03/18/2023 CBC/C OMPLE TE BLD COUNT W/DIF F mean red cell volume 93.5 fL 82.0-9 9.0 Not Available [facility] (Lab) [address] [place], [address], 03/18/2023 18:41:04 03/18/19 24 03/18/2023 CBC/C OMPLE TE BLD COUNT W/DIF F mean red cell hemoglobin 29.3 pg 27.0-3 3.0 Not Available [facility] (Lab) [address] [place], [address], 03/18/2023 18:41:04 03/18/19 24 03/18/2023 CBC/C OMPLE TE BLD COUNT W/DIF F mean RBC HGB concentratio n 31.3 g/dL 31.0-3 6.0 Not Available [facility] (Lab) [address] [place], [address], 03/18/2023 18:41:04 03/18/19 24 03/18/2023 CBC/C OMPLE TE BLD COUNT W/DIF F red cell distribution width 13.8 % 11.8-1 5.5 Not Available [facility] (Lab) [address] [place], [address], 03/18/2023 18:41:04 03/18/19 24 03/18/2023 CBC/C OMPLE TE BLD COUNT W/DIF F platelets 164 x10'3 /uL 150-40 0 Not Available [facility] (Lab) [address] [place], [address], 03/18/2023 18:41:04 03/18/19 24 03/18/2023 CBC/C OMPLE TE BLD COUNT W/DIF F mean platelet volume 12.8 fL 9.0-12 .4 high Not Available [facility] (Lab) [address] [place], [address], 03/18/2023 18:41:04 03/18/19 24 03/18/2023 CBC/C OMPLE TE BLD COUNT W/DIF F neutrophils 60.7 % 39.0-7 2.0 Not Available [facility] (Lab) [address] [place], [address], 03/18/2023 18:41:04 03/18/19 24 03/18/2023 CBC/C OMPLE TE BLD COUNT W/DIF F lymphocytes 28.6 % 16.0-4 7.0 Not Available [facility] (Lab) [address] [place], [address], 03/18/2023 18:41:04 03/18/19 24 03/18/2023 CBC/C OMPLE TE BLD COUNT W/DIF F monocytes 8.9 % 5.0-12 .0 Not Available [facility] (Lab) [address] [place], [address], 03/18/2023 18:41:04 03/18/19 24 03/18/2023 CBC/C OMPLE TE BLD COUNT W/DIF F eosinophils 1.0 % 1.0-7. 0 Not Available [facility] (Lab) [address] [place], [address], 03/18/2023 18:41:04 03/18/19 24 03/18/2023 CBC/C OMPLE TE BLD COUNT W/DIF F basophils 0.4 % 0.0-2. 0 Not Available [facility] (Lab) [address] [place], [address], 03/18/2023 18:41:04 03/18/19 24 03/18/2023 CBC/C OMPLE TE BLD COUNT W/DIF F immature granulocytes 0.4 % 0.00-0 .50 Not Available [facility] (Lab) [address] [place], [address], 03/18/2023 18:41:04 03/18/19 24 03/18/2023 CBC/C OMPLE TE BLD COUNT W/DIF F neutrophils, absolute count 4.17 x10'3 /uL 1.5-8. 0 Not Available [facility] (Lab) [address] [place], [address], 03/18/2023 18:41:04 03/18/19 24 03/18/2023 CBC/C OMPLE TE BLD COUNT W/DIF F lymphocytes, absolute count 1.97 x10'3 /uL 1.07-3 .43 Not Available [facility] (Lab) [address] [place], [address], 03/18/2023 18:41:04 03/18/19 24 03/18/2023 CBC/C OMPLE TE BLD COUNT W/DIF F monocytes, absolute count 0.61 x10'3 /uL 0.29-0 .99 Not Available [facility] (Lab) [address] [place], [address], 03/18/2023 18:41:04 03/18/19 24 03/18/2023 CBC/C OMPLE TE BLD COUNT W/DIF F eosinophils, absolute count 0.07 x10'3 /uL 0.02-0 .53 Not Available [facility] (Lab) [address] [place], [address], 03/18/2023 18:41:04 03/18/19 24 03/18/2023 CBC/C OMPLE TE BLD COUNT W/DIF F basophils, absolute count 0.03 x10'3 /uL 0.01-0 .08 Not Available [facility] (Lab) [address] [place], [address], 03/18/2023 18:41:04 03/18/19 24 03/18/2023 CBC/C OMPLE TE BLD COUNT W/DIF F immature granulocytes ,absolute 0.03 x10'3 /uL 0.00-0 .05 Not Available [facility] (Lab) [address] [place], [address], 03/18/2023 18:41:04 03/18/19 24 03/18/2023 CBC/C OMPLE TE BLD COUNT W/DIF F nucleated red blood cells 0.0 % -0 Not Available [facility] (Lab) [address] [place], [address], 03/18/2023 18:41:04 03/18/19 24 03/18/2023 CBC/C OMPLE TE BLD COUNT W/DIF F NRBC# 0.00 x10'3 /uL Not Available [facility] (Lab) [address] [place], [address], 03/18/2023 18:41:04 03/18/19 24 03/18/2023 LIPID PANEL cholesterol 179 mg/dL 140-19 9 NIH MARSHA NSUS RECOM MENDA TION FOR RONAL STERO L: ADULT CHILD LOW RISK: <200 <170 BORDE RLINE : <200- 239 ----- HIGH RISK: >240 >200 Not Available [facility] (Lab) [address] [place], [address], 03/18/2023 19:16:18 03/18/19 24 03/18/2023 LIPID PANEL triglyceride s 130 mg/dL 0-150 NIH MARSHA NSUS REPOR T RECOM MENDA TION FOR TRIGL YCERI CECIL: ADULT CHILD LOW RISK: <150 ----- BODER LINE: 150-1 99 ----- HIGH RISK: >200 ----- Not Available [facility] (Lab) [address] [place], [address], 03/18/2023 19:16:18 03/18/19 24 03/18/2023 LIPID PANEL HDL cholesterol 71 mg/dL 40- Not Available [facility] (Lab) [address] [place], [address], 03/18/2023 19:16:18 03/18/19 24 03/18/2023 LIPID PANEL LDL cholesterol, calculated 82 mg/dL 0-130 NIH MARSHA NSUS REPOR T RECOM MENDA TIONS FOR LDL: ADULT CHILD LOW RISK <130 <110 (OPTI MAL LDL) <100 ----- BORDE RLINE : 130-1 59 ----- HIGH RISK: >160 >130 A TRIGL YCERI DE RESUL T >400 INVAL IDATE S THE CALCU LATIO N FOR LDL FRACT IONAT ION - THE LDL RESUL T WILL NOT BE REPOR SUNITA. Not Available [facility] (Lab) [address] [place], [address], 03/18/2023 19:16:18 03/18/19 24 03/18/2023 COMPR EHENS DONTAE METAB OLIC PANEL sodium 140 mmol/ L 137-14 5 Not Available [facility] (Lab) [address] [place], [address], 03/18/2023 19:16:31 03/18/19 24 03/18/2023 COMPR EHENS DONTAE METAB OLIC PANEL potassium 3.7 mmol/ L 3.5-5. 1 Not Available [facility] (Lab) [address] [place], [address], 03/18/2023 19:16:31 03/18/19 24 03/18/2023 COMPR EHENS DONTAE METAB OLIC PANEL chloride 103 mmol/ L 98-107 Not Available [facility] (Lab) [address] [place], [address], 03/18/2023 19:16:31 03/18/19 24 03/18/2023 COMPR EHENS DONTAE METAB OLIC PANEL carbon dioxide 27 mmol/ L 22-30 Not Available [facility] (Lab) [address] [place], [address], 03/18/2023 19:16:31 03/18/19 24 03/18/2023 COMPR EHENS DONTAE METAB OLIC PANEL anion gap 13.7 mmol/ L 14-22 low Not Available [facility] (Lab) [address] [place], [address], 03/18/2023 19:16:31 03/18/19 24 03/18/2023 COMPR EHENS DONTAE METAB OLIC PANEL glucose 63 mg/dL 70-99 low Not Available [facility] (Lab) [address] [place], [address], 03/18/2023 19:16:31 03/18/19 24 03/18/2023 COMPR EHENS DONTAE METAB OLIC PANEL BUN 32 mg/dL 8-19 high Not Available [facility] (Lab) [address] [place], [address], 03/18/2023 19:16:31 03/18/19 24 03/18/2023 COMPR EHENS DONTAE METAB OLIC PANEL creatinine 1.01 mg/dL 0.66-1 .25 Not Available [facility] (Lab) [address] [place], [address], 03/18/2023 19:16:31 03/18/19 24 03/18/2023 COMPR EHENS DONTAE METAB OLIC PANEL GFR 53 Refer ence Range : [place] ge GFR Healt hy Adult : >60 mL/mi n/1.7 3 m2 Chron ic Kidne y Disea se: 15-60 mL/mi n/1.7 3 m2 Kidne y Failu re: <15/m L/min /1.73 m2 www.n iddk. nih.g ov The MDRD study equat ion has not been valid ated in child rosemarie <18 years of age; pregn ant women ; the elder ly >85 years of age; or in some racia l or ethni c subgr oups, such as Hisma nics. Outsi de the valid ated carin eters , estim ated GFR is less accur ate, requi ring clini cordell judgm ent on a case- by-ca se basis . Clini cordell inter preta tion for other races and ages must be made by the clini margarita. The MDRD study equat ion has not been valid ated for the evalu ation of serum creat inine relat ed to nutri baljeet l statu s or medic ation usage . For perso ns <18 years of age, a pedia tric GFR calcu lator is avail able on the F websi te: https ://suri edgar.jenny condon/pr dalilaess newtonal s/kdo qi/gf r_cal culat or Not Available [facility] (Lab) [address] [place], [address], 03/18/2023 19:16:31 03/18/19 24 03/18/2023 COMPR EHENS DOTNAE METAB OLIC PANEL alkaline phosphatase 79 U/L 38-126 Not Available [facility] (Lab) [address] [place], [address], 03/18/2023 19:16:31 03/18/19 24 03/18/2023 COMPR EHENS DONTAE METAB OLIC PANEL alanine aminotransfe rase 18 U/L 0-35 Not Available [facility] (Lab) [address] [place], [address], 03/18/2023 19:16:31 03/18/19 24 03/18/2023 COMPR EHENS DONTAE METAB OLIC PANEL aspartate aminotransfe rase 33 U/L 15-37 Not Available [facility] (Lab) [address] [place], [address], 03/18/2023 19:16:31 03/18/19 24 03/18/2023 COMPR EHENS DONTAE METAB OLIC PANEL bilirubin, total 0.40 mg/dL 0.20-1 .30 Not Available [facility] (Lab) [address] [place], [address], 03/18/2023 19:16:31 03/18/19 24 03/18/2023 COMPR EHENS DONTAE METAB OLIC PANEL calcium 9.6 mg/dL 8.4-10 .2 Not Available [facility] (Lab) [address] [place], [address], 03/18/2023 19:16:31 03/18/19 24 03/18/2023 COMPR EHENS DONTAE METAB OLIC PANEL total protein 6.8 g/dL 6.3-8. 2 Not Available [facility] (Lab) [address] [place], [address], 03/18/2023 19:16:31 03/18/19 24 03/18/2023 COMPR EHENS DONTAE METAB OLIC PANEL albumin 4.1 g/dL 3.0-4. 4 Not Available [facility] (Lab) [address] [place], [address], 03/18/2023 19:16:31 03/18/19 24 03/18/2023 COMPR EHENS DONTAE METAB OLIC PANEL globulin 2.7 g/dL 2.6-4. 2 Not Available [facility] (Lab) [address] [place] [place], [address], 03/18/2023 19:16:31 03/18/19 24 03/18/2023 COMPR EHENS DONTAE METAB OLIC PANEL A/G ratio 1.5 ratio 1.0-2. 0 Not Available [facility] (Lab) [address] [place], [address], 03/18/2023 19:16:31 03/18/19 24 03/18/2023 T4 FREE free T4 1.26 NG/dL 0.78-2 .19 Not Available [facility] (Lab) [address] [place], [address], 03/18/2023 19:36:50 03/18/19 24 03/18/2023 TSH thyroid-stim ulating hormone 1.420 uIU/m L 0.465- 4.680 Not Available [facility] (Lab) [address] [place], [address], 03/18/2023 19:54:31 07/16/19 24 07/16/2023 CBC/C OMPLE TE BLD COUNT W/DIF F white blood cells 7.2 x10'3 /uL 4.2-10 .8 Not Available [facility] (Lab) [address] [place], [address], 07/16/2023 15:51:35 07/16/19 24 07/16/2023 CBC/C OMPLE TE BLD COUNT W/DIF F red blood cells 4.25 x10'6 /uL 3.80-5 .20 Not Available [facility] (Lab) [address] [place], [address], 07/16/2023 15:51:35 07/16/19 24 07/16/2023 CBC/C OMPLE TE BLD COUNT W/DIF F hemoglobin 12.3 g/dL 12.0-1 5.6 Not Available [facility] (Lab) [address] [place], [address], 07/16/2023 15:51:35 07/16/19 24 07/16/2023 CBC/C OMPLE TE BLD COUNT W/DIF F hematocrit 38.4 % 35.7-4 5.7 Not Available [facility] (Lab) [address] [place], [address], 07/16/2023 15:51:35 07/16/19 24 07/16/2023 CBC/C OMPLE TE BLD COUNT W/DIF F mean red cell volume 90.4 fL 82.0-9 9.0 Not Available [facility] (Lab) [address] [place], [address], 07/16/2023 15:51:35 07/16/19 24 07/16/2023 CBC/C OMPLE TE BLD COUNT W/DIF F mean red cell hemoglobin 28.9 pg 27.0-3 3.0 Not Available [facility] (Lab) [address] [place], [address], 07/16/2023 15:51:35 07/16/19 24 07/16/2023 CBC/C OMPLE TE BLD COUNT W/DIF F mean RBC HGB concentratio n 32.0 g/dL 31.0-3 6.0 Not Available [facility] (Lab) [address] [place], [address], 07/16/2023 15:51:35 07/16/19 24 07/16/2023 CBC/C OMPLE TE BLD COUNT W/DIF F red cell distribution width 13.9 % 11.8-1 5.5 Not Available [facility] (Lab) [address] [place], [address], 07/16/2023 15:51:35 07/16/19 24 07/16/2023 CBC/C OMPLE TE BLD COUNT W/DIF F platelets 159 x10'3 /uL 150-40 0 Not Available [facility] (Lab) [address] [place], [address], 07/16/2023 15:51:35 07/16/19 24 07/16/2023 CBC/C OMPLE TE BLD COUNT W/DIF F mean platelet volume 12.4 fL 9.0-12 .4 Not Available [facility] (Lab) [address] [place], [address], 07/16/2023 15:51:35 07/16/19 24 07/16/2023 CBC/C OMPLE TE BLD COUNT W/DIF F neutrophils 63.7 % 39.0-7 2.0 Not Available [facility] (Lab) [address] [place], [address], 07/16/2023 15:51:35 07/16/19 24 07/16/2023 CBC/C OMPLE TE BLD COUNT W/DIF F lymphocytes 25.6 % 16.0-4 7.0 Not Available [facility] (Lab) [address] [place], [address], 07/16/2023 15:51:35 07/16/19 24 07/16/2023 CBC/C OMPLE TE BLD COUNT W/DIF F monocytes 8.3 % 5.0-12 .0 Not Available [facility] (Lab) [address] [place], [address], 07/16/2023 15:51:35 07/16/19 24 07/16/2023 CBC/C OMPLE TE BLD COUNT W/DIF F eosinophils 1.4 % 1.0-7. 0 Not Available [facility] (Lab) [address] [place], [address], 07/16/2023 15:51:35 07/16/19 24 07/16/2023 CBC/C OMPLE TE BLD COUNT W/DIF F basophils 0.6 % 0.0-2. 0 Not Available [facility] (Lab) [address] [place], [address], 07/16/2023 15:51:35 07/16/19 24 07/16/2023 CBC/C OMPLE TE BLD COUNT W/DIF F immature granulocytes 0.4 % 0.00-0 .50 Not Available [facility] (Lab) [address] [place], [address], 07/16/2023 15:51:35 07/16/19 24 07/16/2023 CBC/C OMPLE TE BLD COUNT W/DIF F neutrophils, absolute count 4.60 x10'3 /uL 1.5-8. 0 Not Available [facility] (Lab) [address] [place], [address], 07/16/2023 15:51:35 07/16/19 24 07/16/2023 CBC/C OMPLE TE BLD COUNT W/DIF F lymphocytes, absolute count 1.85 x10'3 /uL 1.07-3 .43 Not Available [facility] (Lab) [address] [place], [address], 07/16/2023 15:51:35 07/16/19 24 07/16/2023 CBC/C OMPLE TE BLD COUNT W/DIF F monocytes, absolute count 0.60 x10'3 /uL 0.29-0 .99 Not Available [facility] (Lab) [address] [place], [address], 07/16/2023 15:51:35 07/16/19 24 07/16/2023 CBC/C OMPLE TE BLD COUNT W/DIF F eosinophils, absolute count 0.10 x10'3 /uL 0.02-0 .53 Not Available [facility] (Lab) [address] [place], [address], 07/16/2023 15:51:35 07/16/19 24 07/16/2023 CBC/C OMPLE TE BLD COUNT W/DIF F basophils, absolute count 0.04 x10'3 /uL 0.01-0 .08 Not Available [facility] (Lab) [address] [place], [address], 07/16/2023 15:51:35 07/16/19 24 07/16/2023 CBC/C OMPLE TE BLD COUNT W/DIF F immature granulocytes ,absolute 0.03 x10'3 /uL 0.00-0 .05 Not Available [facility] (Lab) [address] [place], [address], 07/16/2023 15:51:35 07/16/19 24 07/16/2023 CBC/C OMPLE TE BLD COUNT W/DIF F nucleated red blood cells 0.0 % -0 Not Available [facility] (Lab) [address] [place], [address], 07/16/2023 15:51:35 07/16/19 24 07/16/2023 CBC/C OMPLE TE BLD COUNT W/DIF F NRBC# 0.00 x10'3 /uL Not Available [facility] (Lab) [address], [place], [address], 07/16/2023 15:51:35 07/16/19 24 07/16/2023 COMPR EHENS DONTAE METAB OLIC PANEL sodium 135 mmol/ L 137-14 5 low Not Available [facility] (Lab) [address] [place], [address], 07/16/2023 16:36:31 07/16/19 24 07/16/2023 COMPR EHENS DONTAE METAB OLIC PANEL potassium 4.4 mmol/ L 3.5-5. 1 Not Available [facility] (Lab) [address] [place], [address], 07/16/2023 16:36:31 07/16/19 24 07/16/2023 COMPR EHENS DONTAE METAB OLIC PANEL chloride 103 mmol/ L 98-107 Not Available [facility] (Lab) [address] [place], [address], 07/16/2023 16:36:31 07/16/19 24 07/16/2023 COMPR EHENS DONTAE METAB OLIC PANEL carbon dioxide 26 mmol/ L 22-30 Not Available [facility] (Lab) [address] [place], [address], 07/16/2023 16:36:31 07/16/19 24 07/16/2023 COMPR EHENS DONTAE METAB OLIC PANEL anion gap 10.4 mmol/ L 14-22 low Not Available [facility] (Lab) [address] [place], [address], 07/16/2023 16:36:31 07/16/19 24 07/16/2023 COMPR EHENS DONTAE METAB OLIC PANEL glucose 94 mg/dL 70-99 Not Available [facility] (Lab) [address] [place], [address], 07/16/2023 16:36:31 07/16/19 24 07/16/2023 COMPR EHENS DONTAE METAB OLIC PANEL BUN 23 mg/dL 8-19 high Not Available [facility] (Lab) [address] [place], [address], 07/16/2023 16:36:31 07/16/19 24 07/16/2023 COMPR EHENS DONTAE METAB OLIC PANEL creatinine 0.95 mg/dL 0.66-1 .25 Not Available [facility] (Lab) [address] [place], [address], 07/16/2023 16:36:31 07/16/19 24 07/16/2023 COMPR EHENS DONTAE METAB OLIC PANEL GFR 57 Refer ence Range : [place] ge GFR Healt hy Adult : >60 mL/mi n/1.7 3 m2 Chron ic Kidne y Disea se: 15-60 mL/mi n/1.7 3 m2 Kidne y Failu re: <15/m L/min /1.73 m2 www.n iddk. nih.g ov The MDRD study equat ion has not been valid ated in child rosemarie <18 years of age; pregn ant women ; the elder ly >85 years of age; or in some racia l or ethni c subgr oups, such as Hispa nics. Outsi de the valid ated carin eters , estim ated GFR is less accur ate, requi ring clini cordell judgm ent on a case- by-ca se basis . Clini cordell inter preta tion for other races and ages must be made by the clini margarita. The MDRD study equat ion has not been valid ated for the evalu ation of serum creat inine relat ed to nutri baljeet l statu s or medic ation usage . For perso ns <18 years of age, a pedia tric GFR calcu lator is avail able on the [facility] websi te: https :[email or web address] [email or web address] condon/pr ofess ional s/kdo qi/gf r_cal culat or Not Available [facility] (Lab) [address] [place], [address], 07/16/2023 16:36:31 07/16/19 24 07/16/2023 COMPR EHENS DOTNAE METAB OLIC PANEL alkaline phosphatase 90 U/L 38-126 Not Available [facility] (Lab) [address] [place], [address], 07/16/2023 16:36:31 07/16/19 24 07/16/2023 COMPR EHENS DONTAE METAB OLIC PANEL alanine aminotransfe rase 27 U/L 0-35 Not Available [facility] (Lab) [address] [place], [address], 07/16/2023 16:36:31 07/16/19 24 07/16/2023 COMPR EHENS DONTAE METAB OLIC PANEL aspartate aminotransfe rase 41 U/L 15-37 high Not Available [facility] (Lab) [address] [place], [address], 07/16/2023 16:36:31 07/16/19 24 07/16/2023 COMPR EHENS DONTAE METAB OLIC PANEL bilirubin, total 0.60 mg/dL 0.20-1 .30 Not Available [facility] (Lab) [address] [place], [address], 07/16/2023 16:36:31 07/16/19 24 07/16/2023 COMPR EHENS DONTAE METAB OLIC PANEL calcium 10.0 mg/dL 8.4-10 .2 Not Available [facility] (Lab) [address] [place], [address], 07/16/2023 16:36:31 07/16/19 24 07/16/2023 COMPR EHENS DONTAE METAB OLIC PANEL total protein 6.6 g/dL 6.3-8. 2 Not Available [facility] (Lab) [address] [place], [address], 07/16/2023 16:36:31 07/16/19 24 07/16/2023 COMPR EHENS DONTAE METAB OLIC PANEL albumin 4.1 g/dL 3.0-4. 4 Not Available [facility] (Lab) [address] [place], [address], 07/16/2023 16:36:31 07/16/19 24 07/16/2023 COMPR EHENS DONTAE METAB OLIC PANEL globulin 2.5 g/dL 2.6-4. 2 low Not Available [facility] (Lab) [address] [place], [address], 07/16/2023 16:36:31 07/16/19 24 07/16/2023 COMPR EHENS DONTAE METAB OLIC PANEL A/G ratio 1.6 ratio 1.0-2. 0 Not Available [facility] (Lab) [address] [place], [address], 07/16/2023 16:36:31 07/16/19 24 07/16/2023 LIPID PANEL cholesterol 176 mg/dL 140-19 9 NIH MARSHA NSUS RECOM MENDA TION FOR RONAL STERO L: ADULT CHILD LOW RISK: <200 <170 BORDE RLINE : <200- 239 ----- HIGH RISK: >240 >200 Not Available [facility] (Lab) [address] [place], [address], 07/16/2023 16:36:35 07/16/19 24 07/16/2023 LIPID PANEL triglyceride s 67 mg/dL 0-150 NIH MARSHA NSUS REPOR T RECOM MENDA TION FOR TRIGL YCERI CECIL: ADULT CHILD LOW RISK: <150 ----- BODER LINE: 150-1 99 ----- HIGH RISK: >200 ----- Not Available [facility] (Lab) [address] [place], [address], 07/16/2023 16:36:35 07/16/19 24 07/16/2023 LIPID PANEL HDL cholesterol 82 mg/dL 40- Not Available [facility] (Lab) [address] [place], [address], 07/16/2023 16:36:35 07/16/19 24 07/16/2023 LIPID PANEL LDL cholesterol, calculated 81 mg/dL 0-130 NIH MARSHA NSUS REPOR T RECOM MENDA TIONS FOR LDL: ADULT CHILD LOW RISK <130 <110 (OPTI MAL LDL) <100 ----- BORDE RLINE : 130-1 59 ----- HIGH RISK: >160 >130 A TRIGL YCERI DE RESUL T >400 INVAL IDATE S THE CALCU LATIO N FOR LDL FRACT IONAT ION - THE LDL RESUL T WILL NOT BE REPOR SUNITA. Not Available [facility] (Lab) [address] [place], [address], 07/16/2023 16:36:35 07/16/19 24 07/16/2023 T4 FREE free T4 1.47 NG/dL 0.78-2 .19 Not Available [facility] (Lab) [address] [place], [address], 07/16/2023 16:38:43 07/16/19 24 07/16/2023 TSH thyroid-stim ulating hormone 1.750 uIU/m L 0.465- 4.680 Not Available [facility] (Lab) [address] [place], [address], 07/16/2023 16:41:16 07/24/19 24 07/24/2023 HEMOG LOBIN A1C HA1C 5.9 % 4.0-6. 0 Diabe surinder Scree yuliana Crite martha: <5.7% Consi stent with absen ce of diabe surinder 5.7-6 .4% Consi stent with incre ased risk for diabe surinder (pred iabet es) >OR=6 .5% Consi stent with diabe surinder REFER ENCE: Diabe surinder Care 2016, 39(Patel ppl.1 ):s13 -s22 Not Available [facility] (Lab) [address] [place], [address], 07/24/2023 15:10:03 10/30/19 24 10/30/2023 CBC/C OMPLE TE BLD COUNT W/DIF F white blood cells 7.4 x10'3 /uL 4.2-10 .8 Not Available [facility] (Lab) [address] [place], [address], 10/30/2023 18:07:58 10/30/19 24 10/30/2023 CBC/C OMPLE TE BLD COUNT W/DIF F red blood cells 4.32 x10'6 /uL 3.80-5 .20 Not Available [facility] (Lab) [address] [place], [address], 10/30/2023 18:07:58 10/30/19 24 10/30/2023 CBC/C OMPLE TE BLD COUNT W/DIF F hemoglobin 12.6 g/dL 12.0-1 5.6 Not Available [facility] (Lab) [address] [place], [address], 10/30/2023 18:07:58 10/30/19 24 10/30/2023 CBC/C OMPLE TE BLD COUNT W/DIF F hematocrit 38.7 % 35.7-4 5.7 Not Available [facility] (Lab) [address] [place], [address], 10/30/2023 18:07:58 10/30/19 24 10/30/2023 CBC/C OMPLE TE BLD COUNT W/DIF F mean red cell volume 89.6 fL 82.0-9 9.0 Not Available [facility] (Lab) [address] [place], [address], 10/30/2023 18:07:58 10/30/19 24 10/30/2023 CBC/C OMPLE TE BLD COUNT W/DIF F mean red cell hemoglobin 29.2 pg 27.0-3 3.0 Not Available [facility] (Lab) [address] [place], [address], 10/30/2023 18:07:58 10/30/19 24 10/30/2023 CBC/C OMPLE TE BLD COUNT W/DIF F mean RBC HGB concentratio n 32.6 g/dL 31.0-3 6.0 Not Available [facility] (Lab) [address] [place], [address], 10/30/2023 18:07:58 10/30/19 24 10/30/2023 CBC/C OMPLE TE BLD COUNT W/DIF F red cell distribution width 14.1 % 11.8-1 5.5 Not Available [facility] (Lab) [address] [place], [address], 10/30/2023 18:07:58 10/30/19 24 10/30/2023 CBC/C OMPLE TE BLD COUNT W/DIF F platelets 171 x10'3 /uL 150-40 0 Not Available [facility] (Lab) [address] [place], [address], 10/30/2023 18:07:58 10/30/19 24 10/30/2023 CBC/C OMPLE TE BLD COUNT W/DIF F mean platelet volume 12.3 fL 9.0-12 .4 Not Available [facility] (Lab) [address] [place], [address], 10/30/2023 18:07:58 10/30/19 24 10/30/2023 CBC/C OMPLE TE BLD COUNT W/DIF F neutrophils 58.6 % 39.0-7 2.0 Not Available [facility] (Lab) [address] [place], [address], 10/30/2023 18:07:58 10/30/19 24 10/30/2023 CBC/C OMPLE TE BLD COUNT W/DIF F lymphocytes 32.6 % 16.0-4 7.0 Not Available [facility] (Lab) [address] [place], [address], 10/30/2023 18:07:58 10/30/19 24 10/30/2023 CBC/C OMPLE TE BLD COUNT W/DIF F monocytes 6.5 % 5.0-12 .0 Not Available [facility] (Lab) [address] [place], [address], 10/30/2023 18:07:58 10/30/19 24 10/30/2023 CBC/C OMPLE TE BLD COUNT W/DIF F eosinophils 1.6 % 1.0-7. 0 Not Available [facility] (Lab) [address] [place], [address], 10/30/2023 18:07:58 10/30/19 24 10/30/2023 CBC/C OMPLE TE BLD COUNT W/DIF F basophils 0.4 % 0.0-2. 0 Not Available [facility] (Lab) [address] [place], [address], 10/30/2023 18:07:58 10/30/19 24 10/30/2023 CBC/C OMPLE TE BLD COUNT W/DIF F immature granulocytes 0.3 % 0.00-0 .50 Not Available [facility] (Lab) [address] [place], [address], 10/30/2023 18:07:58 10/30/19 24 10/30/2023 CBC/C OMPLE TE BLD COUNT W/DIF F neutrophils, absolute count 4.36 x10'3 /uL 1.5-8. 0 Not Available [facility] (Lab) [address] [place], [address], 10/30/2023 18:07:58 10/30/19 24 10/30/2023 CBC/C OMPLE TE BLD COUNT W/DIF F lymphocytes, absolute count 2.42 x10'3 /uL 1.07-3 .43 Not Available [facility] (Lab) [address] [place], [address], 10/30/2023 18:07:58 10/30/19 24 10/30/2023 CBC/C OMPLE TE BLD COUNT W/DIF F monocytes, absolute count 0.48 x10'3 /uL 0.29-0 .99 Not Available [facility] (Lab) [address] [place], [address], 10/30/2023 18:07:58 10/30/19 24 10/30/2023 CBC/C OMPLE TE BLD COUNT W/DIF F eosinophils, absolute count 0.12 x10'3 /uL 0.02-0 .53 Not Available [facility] (Lab) [address] [place], [address], 10/30/2023 18:07:58 10/30/19 24 10/30/2023 CBC/C OMPLE TE BLD COUNT W/DIF F basophils, absolute count 0.03 x10'3 /uL 0.01-0 .08 Not Available [facility] (Lab) [address] [place], [address], 10/30/2023 18:07:58 10/30/19 24 10/30/2023 CBC/C OMPLE TE BLD COUNT W/DIF F immature granulocytes ,absolute 0.02 x10'3 /uL 0.00-0 .05 Not Available [facility] (Lab) [address] [place], [address], 10/30/2023 18:07:58 10/30/19 24 10/30/2023 CBC/C OMPLE TE BLD COUNT W/DIF F nucleated red blood cells 0.0 % -0 Not Available [facility] (Lab) [address] [place], [address], 10/30/2023 18:07:58 10/30/19 24 10/30/2023 CBC/C OMPLE TE BLD COUNT W/DIF F NRBC# 0.00 x10'3 /uL Not Available [facility] (Lab) [address] [place], [address], 10/30/2023 18:07:58 10/30/19 24 10/30/2023 LIPID PANEL cholesterol 184 mg/dL 140-19 9 NIH MARSHA NSUS RECOM MENDA TION FOR RONAL STERO L: ADULT CHILD LOW RISK: <200 <170 BORDE RLINE : <200- 239 ----- HIGH RISK: >240 >200 Not Available [facility] (Lab) [address] [place], [address], 10/30/2023 18:34:42 10/30/19 24 10/30/2023 LIPID PANEL triglyceride s 78 mg/dL 0-150 NIH MARSHA NSUS REPOR T RECOM MENDA TION FOR TRIGL YCERI CECIL: ADULT CHILD LOW RISK: <150 ----- BODER LINE: 150-1 99 ----- HIGH RISK: >200 ----- Not Available [facility] (Lab) [address] [place], [address], 10/30/2023 18:34:42 10/30/19 24 10/30/2023 LIPID PANEL HDL cholesterol 91 mg/dL 40- Not Available [facility] (Lab) [address] [place], [address], 10/30/2023 18:34:42 10/30/19 24 10/30/2023 LIPID PANEL LDL cholesterol, calculated 77 mg/dL 0-130 NIH MARSHA NSUS REPOR T RECOM MENDA TIONS FOR LDL: ADULT CHILD LOW RISK <130 <110 (OPTI MAL LDL) <100 ----- BORDE RLINE : 130-1 59 ----- HIGH RISK: >160 >130 A TRIGL YCERI DE RESUL T >400 INVAL IDATE S THE CALCU LATIO N FOR LDL FRACT IONAT ION - THE LDL RESUL T WILL NOT BE REPOR SUNITA. Not Available [facility] (Lab) [address] [place], [address], 10/30/2023 18:34:42 10/30/19 24 10/30/2023 COMPR EHENS DONTAE METAB OLIC PANEL sodium 135 mmol/ L 137-14 5 low Not Available [facility] (Lab) [address] [place], [address], 10/30/2023 18:34:48 10/30/19 24 10/30/2023 COMPR EHENS DONTAE METAB OLIC PANEL potassium 4.5 mmol/ L 3.5-5. 1 Not Available [facility] (Lab) [address] [place], [address], 10/30/2023 18:34:48 10/30/19 24 10/30/2023 COMPR EHENS DONTAE METAB OLIC PANEL chloride 102 mmol/ L 98-107 Not Available [facility] (Lab) [address] [place], [address], 10/30/2023 18:34:48 10/30/19 24 10/30/2023 COMPR EHENS DONTAE METAB OLIC PANEL carbon dioxide 30 mmol/ L 22-30 Not Available [facility] (Lab) [address] [place], [address], 10/30/2023 18:34:48 10/30/19 24 10/30/2023 COMPR EHENS DONTAE METAB OLIC PANEL anion gap 7.5 mmol/ L 14-22 low Not Available [facility] (Lab) [address] [place], [address], 10/30/2023 18:34:48 10/30/19 24 10/30/2023 COMPR EHENS DONTAE METAB OLIC PANEL glucose 94 mg/dL 70-99 Not Available [facility] (Lab) [address] [place], [address], 10/30/2023 18:34:48 10/30/19 24 10/30/2023 COMPR EHENS DONTAE METAB OLIC PANEL BUN 24 mg/dL 8-19 high Not Available [facility] (Lab) [address] [place], [address], 10/30/2023 18:34:48 10/30/19 24 10/30/2023 COMPR EHENS DONTAE METAB OLIC PANEL creatinine 1.09 mg/dL 0.66-1 .25 Not Available [facility] (Lab) [address] [place], [address], 10/30/2023 18:34:48 10/30/19 24 10/30/2023 COMPR EHENS DONTAE METAB OLIC PANEL GFR 48 Refer ence Range : [place] ge GFR Healt hy Adult : >60 mL/mi n/1.7 3 m2 Chron ic Kidne y Disea se: 15-60 mL/mi n/1.7 3 m2 Kidne y Failu re: <15/m L/min /1.73 m2 www.n iddk. nih.g ov The MDRD study equat ion has not been valid ated in child rosemarie <18 years of age; pregn ant women ; the elder ly >85 years of age; or in some racia l or ethni c subgr oups, such as Hispa nics. Outsi de the valid ated carin eters , estim ated GFR is less accur ate, requi ring clini cordell judgm ent on a case- by-ca se basis . Clini cordell inter preta tion for other races and ages must be made by the clini margarita. The MDRD study equat ion has not been valid ated for the evalu ation of serum creat inine relat ed to nutri baljeet l statu s or medic ation usage . For perso ns <18 years of age, a pedia tric GFR calcu lator is avail able on the [facility] websi te: https :[email or web address] [email or web address].jenny rg/pr dalilaess ional s/kdo qi/gf r_cal culat or Not Available [facility] (Lab) [address] [place], [address], 10/30/2023 18:34:48 10/30/19 24 10/30/2023 COMPR EHENS DONTAE METAB OLIC PANEL alkaline phosphatase 93 U/L 38-126 Not Available [facility] (Lab) [address] [place], [address], 10/30/2023 18:34:48 10/30/19 24 10/30/2023 COMPR EHENS DONTAE METAB OLIC PANEL alanine aminotransfe rase 26 U/L 0-35 Not Available [facility] (Lab) [address] [place], [address], 10/30/2023 18:34:48 10/30/19 24 10/30/2023 COMPR EHENS DONTAE METAB OLIC PANEL aspartate aminotransfe rase 43 U/L 15-37 high Not Available [facility] (Lab) [address] [place], [address], 10/30/2023 18:34:48 10/30/19 24 10/30/2023 COMPR EHENS DONTAE METAB OLIC PANEL bilirubin, total 0.70 mg/dL 0.20-1 .30 Not Available [facility] (Lab) [address] [place], [address], 10/30/2023 18:34:48 10/30/19 24 10/30/2023 COMPR EHENS DONTAE METAB OLIC PANEL calcium 9.6 mg/dL 8.4-10 .2 Not Available [facility] (Lab) [address] [place], [address], 10/30/2023 18:34:48 10/30/19 24 10/30/2023 COMPR EHENS DONTAE METAB OLIC PANEL total protein 7.2 g/dL 6.3-8. 2 Not Available [facility] (Lab) [address] [place], [address], 10/30/2023 18:34:48 10/30/19 24 10/30/2023 COMPR EHENS DONTAE METAB OLIC PANEL albumin 4.4 g/dL 3.0-4. 4 Not Available [facility] (Lab) [address] [place], [address], 10/30/2023 18:34:48 10/30/19 24 10/30/2023 COMPR EHENS DONTAE METAB OLIC PANEL globulin 2.8 g/dL 2.6-4. 2 Not Available [facility] (Lab) [address] [place], [address], 10/30/2023 18:34:48 10/30/19 24 10/30/2023 COMPR EHENS DONTAE METAB OLIC PANEL A/G ratio 1.6 ratio 1.0-2. 0 Not Available [facility] (Lab) [address] [place], [address], 10/30/2023 18:34:48 10/30/19 24 10/30/2023 T4 FREE free T4 1.40 NG/dL 0.78-2 .19 Not Available [facility] (Lab) [address] [place], [address], 10/30/2023 19:27:01 10/30/19 24 10/30/2023 TSH thyroid-stim ulating hormone 1.690 uIU/m L 0.465- 4.680 Not Available [facility] (Lab) [address] [place], [address], 10/30/2023 19:32:56 05/22/19 24 05/20/2023 US, echoc ardio gram No observ ation record ed. [email or web address] [facility] [address], [place], [address], 11/19/2023 16:12:35 05/22/19 24 05/20/2023 US, duple x, carot id arter y No observ ation record ed. [facility] [address], [place], [address], 11/19/2023 16:12:54 01/24/20 24 01/24/2024 CT, head, w/o contr ast No observ ation record ed. [email or web address] [facility] [address] [place], [address], 02/10/2024 17:01:49 01/24/20 24 01/24/2024 imagi ng/di agnos tic resul t No observ ation record ed. [address] [place], [address], 02/10/2024 17:04:07 01/24/20 24 01/24/2024 XR, tibia + fibul a No observ ation record ed. [address] [place], [address], 02/10/2024 17:05:10 01/24/20 24 01/24/2024 XR, femur No observ ation record ed. [address] [place], [address], 02/10/2024 17:05:23 01/24/20 24 01/24/2024 XR, knee No observ ation record ed. [address] [place], [address], 02/10/2024 17:05:35 01/24/20 24 01/24/2024 XR, chest No observ ation record ed. [address] [place], [address], 02/10/2024 17:05:47 01/24/20 24 01/24/2024 XR, chest , 1 view No observ ation record ed. [address] [place], [address], 01/27/2024 08:22:00 01/24/20 24 01/24/2024 XR, ribs, bilat eral No observ ation record ed. [address] [place], [address], 01/27/2024 08:22:37 01/24/20 24 01/24/2024 XR, ribs, bilat eral No observ ation record ed. [email or web address] [place], [address], 02/10/2024 17:06:03 01/25/20 24 01/25/2024 XR, hip + pelvi s, unila teral No observ ation record ed. [address] [place], [address], 01/27/2024 08:23:00 01/25/20 24 01/25/2024 imagi ng/di agnos tic resul t No observ ation record ed. [address] [place], [address], 02/10/2024 17:06:23 01/28/20 24 01/28/2024 XR, chest No observ ation record ed. [address] [place], [address], 02/10/2024 17:06:46 01/28/20 24 01/28/2024 XR, chest , 1 view No observ ation record ed. [email or web address] [facility] [address] [place], [address], 01/28/2024 16:05:33 01/29/20 24 01/29/2024 XR, chest No observ ation record ed. [address] [place], [address], 01/30/2024 08:18:55 01/29/20 24 01/29/2024 XR, chest No observ ation record ed. [address] [place], [address], 02/10/2024 17:06:57 01/29/20 24 01/29/2024 CT, angio gram, chest , w/ contr ast No observ ation record ed. [address] [place], [address], 01/30/2024 08:20:30 01/29/20 24 01/29/2024 CT, angio gram, chest , w/ contr ast No observ ation record ed. [address] [place], [address], 01/30/2024 08:21:11 01/29/20 24 01/29/2024 imagi ng/di agnos tic resul t No observ ation record ed. [address] [place], [address], 02/10/2024 17:07:10 01/29/20 24 01/29/2024 imagi ng/di agnos tic resul t No observ ation record ed. [address] [place], [address], 02/10/2024 17:07:22 02/02/20 24 02/02/2024 XR, chest No observ ation record ed. [address] [place], [address], 02/03/2024 08:49:28 02/02/20 24 02/02/2024 XR, chest No observ ation record ed. [address] [place], [address], 02/10/2024 17:07:43 02/06/20 24 02/06/2024 imagi ng/di agnos tic resul t No observ ation record ed. [facility] [address] [place], [address], 02/07/2024 01:25:25 02/06/20 24 02/06/2024 XR, chest , 1 view No observ ation record ed. [email or web address] [facility] [address] [place], [address], 02/10/2024 09:08:07 02/06/20 24 02/06/2024 imagi ng/di agnos tic resul t No observ ation record ed. [facility] [address] [place], [address], 02/07/2024 02:55:07 02/06/20 24 02/06/2024 unlis sunita proce dure, femur or knee (PROC ) No observ ation record ed. [address] [place], [address], 02/10/2024 09:10:00 02/06/20 24 02/06/2024 XR, chest No observ ation record ed. [address] [place], [address], 02/10/2024 09:10:17 02/06/20 24 02/06/2024 imagi ng/di agnos tic resul t No observ ation record ed. [facility] [address] [place], [address], 02/07/2024 03:14:04 06/19/19 25 06/18/2024 imagi ng/di agnos tic resul t No observ ation record ed. [facility] [address], [place], [address], 06/18/2024 17:28:39 06/19/19 25 06/18/2024 imagi ng/di agnos tic resul t No observ ation record ed. [facility] [address], [place], [address], 06/18/2024 17:39:22 Result Notes None recorded. Problems Name Problem SNOMED Code Status Onset Date Resolution Date Notes Provider Name and Address Organization Details Recorded Time Hypergly cemia 88292314 Active 2022 Not Available [facility] 3 17:28:34 Coronary arterios clerosis 72710355 Active 2022 Not Available [facility] 3 17:28:34 Moderate recurren t major depressi on 02759208 Active 2022 [facility] Available [facility] 17:28:33 Gastroes ophageal reflux disease without esophagi tis 009759547 Active 2022 Not Available [facility] 3 17:28:33 Parkinso n's disease 68611075 Active 2022 wrong diagnosi s from previous Neurolog ist Not Available [facility] 3 17:28:34 Thromboc ytopenic disorder 239718911 Active 2022 Not Available [facility] 3 17:28:34 Increase d liver function 90308476 Active 2022 Not Available [facility] 3 17:28:34 Chronic kidney disease 963247301 Active 2023 Greyson olivo MD [address], [place], [address] , [employer] [facility] [employer] 4 15:53:46 Allergic rhinitis 73426884 Active 2023 Greyson olivo MD [address], [place], [address] , [employer] [facility] [employer] [facility] 4 15:00:10 Diarrhea 49236880 Active 2023 Greyson olivo MD [address], [place], [address] , [employer] [facility] [employer] [facility] 4 15:01:42 Closed fracture of neck of left femur [id number] 596862 Active 2024 Greyson olivo MD [address], [place], [address] , [employer] [facility] [employer] [facility] 5 10:25:51 Anemia 518937128 Active 2024 Greyson olivo MD [address], [place], [address] , [employer] [facility] [employer] [facility] 5 10:35:52 Acute sinusiti s 34649880 Active 2021 Not Available [facility] 3 17:28:33 Impacted cerumen 42590318 Active Not Available [facility] 3 17:28:33 Cataract 944722492 Active Not Available [facility] 3 17:28:33 Anxiety state 573885552 Active Not Available [facility] 3 17:28:33 Osteoart hritis of hip 590437524 Active Not Available [facility] 3 17:28:33 Fibrocys tic disease of breast 40929319 Active Not Available [facility] 3 17:28:33 Pain in toe 686990226 Active Not Available [facility] 3 17:28:34 Sinusiti s 14629491 Active 2016 Not Available [facility] 3 17:28:34 Osteoart hritis 905855649 Active Not Available [facility] 3 17:28:34 Parkinso n's disease 10961731 Completed wrong diagnosi s from previous Neurolog ist Greyson olivo MD [address] [facility] [address], [place], [address] , [facility] [facility] [employer] 3 14:51:18 Cough [id number] Active 2016 Not Available [facility] 3 17:28:34 Pain of breast 72733096 Active Not Available [facility] 3 17:28:34 Upper respirat ory infectio n [id number] Active Not Available [facility] 3 17:28:34 Hyperlip idemia 96234524 Active Not Available [facility] 3 17:28:34 [facility] hyperten deng [id number] Active Not Available [facility] 3 17:28:34 Heredita ry [facility] tremor [id number] Active 2021 Not Available [facility] 3 17:28:34 Problem Notes None recorded. Procedures Surgical History Date Name Laterality Status Provider Name and Address Organization Details Recorded Time 02/24/20 24 total replacement of hip completed NICOLE Braun [facility] [employer] [facility] 04/06/2024 16:06:14 07/23/19 24 Medicare Wellness CPT Code, subsequent completed King Luciano LPN MA [employer] [facility] [employer] [facility] 07/23/2023 16:48:01 06/05/19 23 Medicare Wellness CPT Code, subsequent completed Sheyla Nieves RN [facility] [employer] [facility] 06/04/2022 14:59:44 07/06/19 22 Colonoscopy completed Not Available [facility] 05/10/19 23 04:41:54 06/06/19 22 other completed Not Available [facility] 04:41:54 Shunt subclavian to pulm art completed Not Available [facility] 05/09/2022 04:41:54 total replacement of hip completed Not Available [facility] 05/09/2022 04:41:54 Cataract Surgery completed Not Available [facility] 05/09/2022 04:41:54 Imaging Results Imaging Date Name Status LastModified by Organization Details LastModified Time 05/20/2023 US, echocardiogram completed [facility] [address], [place], [address], 11/19/2023 16:12:35 05/20/2023 US, duplex, carotid artery completed [email or web address] [address], [place], [address], 11/19/2023 16:12:54 01/24/2024 CT, head, w/o contrast completed [address] [place], [address], 02/10/2024 17:01:49 01/24/2024 imaging/diagnostic result completed [address] [place], [address], 02/10/2024 17:04:07 01/24/2024 XR, tibia + fibula completed [address] [place], [address], 02/10/2024 17:05:10 01/24/2024 XR, femur completed [address] [place], [address], 02/10/2024 17:05:23 01/24/2024 XR, knee completed [address] [place], [address], 02/10/2024 17:05:35 01/24/2024 XR, chest completed [address] [place], [address], 02/10/2024 17:05:47 01/24/2024 XR, chest, 1 view completed [address] [place], [address], 01/27/2024 08:22:00 01/24/2024 XR, ribs, bilateral completed [email or web address] [address] [place], [address], 01/27/2024 08:22:37 01/24/2024 XR, ribs, bilateral completed [address] [place], [address], 02/10/2024 17:06:03 01/25/2024 XR, hip + pelvis, unilateral completed [facility] [address] [place], [address], 01/27/2024 08:23:00 01/25/2024 imaging/diagnostic result completed [address] [place], [address], 02/10/2024 17:06:23 01/28/2024 XR, chest completed [address] [place], [address], 02/10/2024 17:06:46 01/28/2024 XR, chest, 1 view completed [email or web address] [place], [address], 01/28/2024 16:05:33 01/29/2024 XR, chest completed [address] [place], [address], 01/30/2024 08:18:55 01/29/2024 XR, chest completed [address] [place], [address], 02/10/2024 17:06:57 01/29/2024 CT, angiogram, chest, w/ contrast completed [address] [place], [address], 01/30/2024 08:20:30 01/29/2024 CT, angiogram, chest, w/ contrast completed [address] [place], [address], 01/30/2024 08:21:11 01/29/2024 imaging/diagnostic result completed [address] [place], [address], 02/10/2024 17:07:10 01/29/2024 imaging/diagnostic result completed [address] [place], [address], 02/10/2024 17:07:22 02/02/2024 XR, chest completed [address] [place], [address], 02/03/2024 08:49:28 02/02/2024 XR, chest completed [address] [place], [address], 02/10/2024 17:07:43 02/06/2024 imaging/diagnostic result active [facility] [address] [place], [address], 02/07/2024 01:25:25 02/06/2024 XR, chest, 1 view completed [address] [place], [address], 02/10/2024 09:08:07 02/06/2024 imaging/diagnostic result active [facility] [address] [place], [address], 02/07/2024 02:55:07 02/06/2024 unlisted procedure, femur or knee (PROC) completed [address] [place], [address], 02/10/2024 09:10:00 02/06/2024 XR, chest completed [address] [place], [address], 02/10/2024 09:10:17 02/06/2024 imaging/diagnostic result active [facility] [address] [place], [address], 02/07/2024 03:14:04 06/18/2024 imaging/diagnostic result active [facility] [address], [place], [address], 06/18/2024 17:28:39 06/18/2024 imaging/diagnostic result active [facility] [address], [place], [address], 06/18/2024 17:39:22 Procedure Notes None recorded. Medical Equipment None Reported. Allergies No known drug allergies Medications Name Sig Start Date Stop Date Status Note LastModified by Organization Details LastModified Time losartan 50 mg tablet 06/04 completed Not Available Not Available Not Available amoxicillin 500 mg capsule TAKE 4 CAPSULES BY MOUTH 1 HOUR PRIOR TO APPOINTME NT active Not Available Not Available No t Available furosemide 40 mg tablet 04/06 completed Not Available Not Available Not Available atorvastati n 40 mg tablet TAKE 1 TABLET DAILY 06/27 completed Not Available Not Available Not Available silver sulfadiazin e 1 % topical cream APPLY A 1/16 INCH (1.5 MM) THICK LAYER TO ENTIRE BURN AREA BY TOPICALRO ELLIS 2 TIMES PER DAY 12/15 completed Not Available Not Available Not Available atorvastati n 80 mg tablet TK 1T PO QD active Not Available Not Available No t Available acetaminoph en 325 mg tablet active Not Available Not Available Not Available prednisone 10 mg tablet taek [id number], [id number], [id number] active Not Available Not Available No t Available cetirizine 10 mg tablet TAKE 1 TABLET BY MOUTH EVERY DAY NEEDED active Not Available Not Available No t Available Pneumovax-2 3 25 mcg/0.5 mL injection solution active Not Available Not Available Not Available azithromyci n 250 mg tablet TAKE 2 TABLETS BY MOUTH TODAY, THEN TAKE 1 TABLET DAILY FOR 4 DAYS 12/03 completed Not Available Not Available Not Available carbidopa 25 mg-levodopa 250 mg tablet Take 1 tablet 3 times a day by oral route as needed for 90 days. 12/04 completed Not Available Not Available Not Available urea 40 % topical cream APPLY TO CALLUSES ON FEET ONCE DAILY 09/04 completed Not Available Not Available Not Available sertraline 100 mg tablet TAKE 1 1/2 TAB DAILY 150MG 12/04 completed Not Available Not Available Not Available clopidogrel 75 mg tablet Take 1 tablet every day by oral route. active Not Available Not Available No t Available amlodipine 5 mg tablet TAKE 1 TABLET TWICE A DAY active Not Available Not Available No t Available tramadol 50 mg tablet Take 1 tablet twice a day by oral route for 15 days. active Not Available Not Available No t Available triamcinolo ne acetonide 0.1 % topical cream APPLY TO AFFECTED AREA TWICE A DAY 06/27 completed Not Available Not Available Not Available amoxicillin 500 mg tablet Take 4 prior to dental cleaning 08/18 completed Not Available Not Available Not Available oxycodone-a cetaminophe n 5 mg-325 mg tablet TAKE 1 TABLET BY MOUTH EVERY 4 TO 6 HOURS NEEDED FOR PAIN 07/31 completed Not Available Not Available Not Available famotidine 20 mg tablet Take 1 tablet twice a day by oral route. 12/15 completed Not Available Not Available Not Available prednisolon e acetate 1 % eye drops,suspe nsion INSTILL 1 DROP INTO AFFECTED EYE THREE TIMES DAILY TO BEGIN AFTER SURGERY active Not Available Not Available No t Available amlodipine 10 mg tablet Take 1 tablet every day by oral route. 06/04 completed Not Available Not Available Not Available benzonatate 100 mg capsule TAKE 1 CAPSULE BY MOUTH THREE TIMES A DAY FOR 7 DAYS 04/21 completed Not Available Not Available Not Available cephalexin 500 mg capsule TAKE ONE CAPSULE BY MOUTH TWICE A DAY active Not Available Not Available No t Available pantoprazol e 40 mg tablet,hanh yed release TAKE 1 TABLET EVERY OTHER DAY NEEDED active Not Available Not Available No t Available mirtazapine 30 mg tablet Take 1 tablet every day by oral route. 12/04 completed Not Available Not Available Not Available losartan 25 mg tablet 04/06 completed Not Available Not Available Not Available montelukast 10 mg tablet Take 1 tablet every day by oral route. active Not Available Not Available No t Available codeine 10 mg-guaifene sin 100 mg/5 mL oral liquid TAKE 5ML BY MOUTH EVERY 6 HOURS NEEDED 12/03 completed Not Available Not Available Not Available hydrochloro thiazide 25 mg tablet TAKE 1 TABLET DAILY DIRECTED active Not Available Not Available No t Available furosemide 20 mg tablet Take 1 tablet every day by oral route as needed for 30 days. active Not Available Not Available No t Available levofloxaci n 750 mg tablet TAKE 1 TABLET BY MOUTH EVERY DAY FOR 7 DAYS active Not Available Not Available No t Available propranolol 20 mg tablet TAKE 1 TABLET DAILY NEEDED 2024 active Not Available Not Available Not Avai lable losartan 100 mg tablet Take 1 tablet every day by oral route for 90 days. active Not Available Not Available No t Available fluticasone propionate 50 mcg/actuati on nasal spray,suspe nsion SPRAY 1 SPRAY BY INTRANASA L ROUTE EVERY DAY FOR 30 DAYS active Not Available Not Available No t Available loratadine 10 mg tablet TAKE 1 TABLET BY MOUTH EVERY DAY 06/23 completed Not Available Not Available Not Available metoclopram rosita 10 mg tablet Take 1 tablet every day by oral route as directed for 90 days. 11/20 completed Not Available Not Available Not Available amoxicillin 875 mg-potassiu m clavulanate 125 mg tablet TAKE 1 TABLET BY MOUTH EVERY 12 HOURS FOR 7 DAYS 04/21 completed Not Available Not Available Not Available Laxative (bisacodyl) 5 mg tablet,hanh yed release TAKE 6 TABLETS AT 8AM ON 07/04 completed Not Available Not Available Not Available Klor-Con M20 mEq tablet,exte nded release active Not Available Not Available Not Available Vesicare 5 mg tablet Take 1 tablet every day by oral route for 90 days. 2012 active Not Available Not Available Not Avai lable Vesicare 10 mg tablet Take 1 tablet every day by oral route for 90 days. 09/04 completed Not Available Not Available Not Available magnesium once a day 08/18 completed Not Available Not Available Not Available Calcium 600 1 TAB 2 TIMES DAILY 2019 active Not Available Not Available Not Avai lable Ocuvite 1 TAB DAILY 2019 active Not Available Not Available Not Avai lable peg 3350-electr olytes 236 gram-22.74 gram-6.74 gram-5.86 gram solution DRINK HALF AT 5PM 07/04 AND HALF AT 5AM 07/05 completed Not Available Not Available Not Available Prevnar 13 (PF) 0.5 mL intramuscul ar syringe active Not Available Not Available N ot Available gatifloxaci n 0.5 % eye drops INSTILL 1 DROP INTO AFFECTED EYE THREE TIMES DAILY TO BEGIN 1 DAY BEFORE SURGERY active Not Available Not Available No t Available krill oil 500 mg capsule twice a day 09/04 completed Not Available Not Available Not Available Ivelisse Allergy 180 mg tablet Take 1 tablet every day by oral route. 04/30 completed Not Available Not Available Not Available Ilevro 0.3 % eye drops,suspe nsion INSTILL ONE DROP INTO SURGICAL EYE DAILY STARTING ONE DAY BEFORE SURGERY active Not Available Not Available No t Available Fluzone High-Dose (PF) 180 mcg/0.5 mL intramuscul ar syringe active Not Available Not Available N ot Available guaifenesin ER 600 mg tablet, extended release 12 hr 04/06 completed Not Available Not Available Not Available Fluzone High-Dose (PF) 180 mcg/0.5 mL intramuscul ar syringe active Not Available Not Available N ot Available Fluzone High-Dose (PF) 180 mcg/0.5 mL intramuscul ar syringe active Not Available Not Available N ot Available Vitamin B12 500mcg take one tablet only on saturday and saturday only 2019 active Not Available Not Available Not Avai lable Fluzone High-Dose [id number] (PF) 180 mcg/0.5 mL intramuscul ar syringe 09/04 completed Not Available Not Available Not Available Shingrix (PF) 50 mcg/0.5 mL intramuscul ar suspension, kit 07/12 completed Not Available Not Available Not Available Fluad 2018- 65yr up(PF)45 mcg(15 mcgx3)/0.5 mL intramuscul ar syringe PHARMACIS T ADMINISTE RED IMMUNIZAT ION ADMINISTE RED AT TIME OF DISPENSIN G 07/12 completed Not Available Not Available Not Available Vitals Date Recorded Body height Body mass index (BMI) Body weight Body temperature Heart rate Systolic blood pressure Diastolic blood pressure Provider Name and Address Organization Details Last Updated DateTime 4 157.48 cm 27.8 kg/m2 23345.0 4 g 97.2 [degF] 72 /min 132 mm[Hg] 68 mm[Hg] NICOLE Braun [employer] [facility] [employer] 4 14:42:42 Date Recorded Body height Body mass index (BMI) Body weight Body temperature Heart rate Systolic blood pressure Diastolic blood pressure Provider Name and Address Organization Details Last Updated DateTime 4 157.48 cm 27.4 kg/m2 45805.8 6 g 97.7 [degF] 72 /min 126 mm[Hg] 80 mm[Hg] NICOLE Braun MA [employer] [facility] [employer] 4 14:50:00 Date Recorded Pain severity - 0-10 verbal numeric rating [Score] - Reported Provider Name and Address Organization Details Last Updated DateTime 07/23/2023 0 King Luciano LPN MA [employer] [facility] [employer] [facility] 07/23/2023 16:48:12 Date Recorded Body height Body mass index (BMI) Body weight Body temperature Heart rate Systolic blood pressure Diastolic blood pressure Provider Name and Address Organization Details Last Updated DateTime 4 157.48 cm 27.8 kg/m2 03103.0 4 g 97.3 [degF] 72 /min 120 mm[Hg] 78 mm[Hg] NICOLE Braun [employer] 4 15:14:14 Date Recorded Body height Body mass index (BMI) Body weight Body temperature Heart rate Systolic blood pressure Diastolic blood pressure Provider Name and Address Organization Details Last Updated DateTime 5 157.48 cm 26.9 kg/m2 35557.0 8 g 97.6 [degF] 72 /min 110 mm[Hg] 64 mm[Hg] NICOLE Braun [employer] 5 16:07:51 Social History Question Answer Notes LastModified by Organization Details LastModified Time Tobacco Smoking Status Former Smoker quit 1984 Not Available [employer] 05/09/2022 04:13:28 Do You Have An Advance Directive? Yes Patient To Bring Copy For Chart. [email or web address].[id number] Information not available 05/09/2022 What Is Your Level Of Alcohol Consumption? None MIGRATION.030 [id number] Information not available 05/09/2022 Do You Wear A Helmet When Biking? No Does Not Bike [email or web address] Information not available 07/23/2023 Are You Blind Or Do You Have Difficulty Seeing? No MIGRATION.0301 [id number] Information not available 05/09/2022 What Is Your Level Of Caffeine Consumption? Moderate Diet Coke Daily MIGRATION.030 [id number] Information not available 05/09/2022 In The 14 Days Before Symptom Onset, Have You Had Close Contact With A Laboratory-confi rmed COVID-19 While That Case Was Ill? No MIGRATION.030 [id number] Information not available 05/09/2022 In The 14 Days Before Symptom Onset, Have You Had Close Contact With A Person Who Is Under Investigation For COVID-19 While That Person Was Ill? No MIGRATION.030 [id number] Information not available 05/09/2022 Are You Currently Employed? No Retired [email or web address] Information not available 07/23/2023 Are You Deaf Or Do You Have Serious Difficulty Hearing? No MIGRATION.0301 [id number] Information not available 05/09/2022 What Type Of Diet Are You Following? REGULAR MIGRATION.0301 [id number] Information not available 05/09/2022 How Many Days Of Moderate To Strenuous Exercise, Like A Brisk Walk, Did You Do In The Last 7 Days? 2 [email or web address] Information not available 07/23/2023 Have There Been Any Changes To Your Family Or Social Situation? No MIGRATION.0301 [id number] Information not available 05/09/2022 What Is The Fluoride Status Of Your Home? Unknown MIGRATION.030 [id number] Information not available 05/09/2022 When Did You Quit Smoking? 18+yearssincelastc igarette MIGRATION.030 [id number] Information not available 05/09/2022 Are There Any Guns Present In Your Home? Yes MIGRATION.030 [id number] Information not available 05/09/2022 Do You Use Insect Repellent Routinely? No MIGRATION.030 [id number] Information not available 05/09/2022 Where Do You Live? SingleLevelHouse MIGRATION.030 [id number] Information not available 05/09/2022 Presence Of Domestic Violence No [email or web address] Information not available 07/23/2023 Guns Present In The Home? Yes [email or web address] Information not available 06/04/2022 Are You Able To Care For Yourself? Yes [email or web address] Information not available 06/04/2022 Are You Blind Or Do Yo Have Difficulty Seeing? No [email or web address] Information not available 06/04/2022 Are You Deaf Or Do You Have Serious Difficulty Hearing? No [email or web address] Information not available 06/04/2022 General Stress Level? Low [email or web address] Information not available 07/23/2023 Live Alone Of With Others? With Others [email or web address] Information not available 06/04/2022 Do You Have A Medical Power Of Senior Financial Reporting Analyst? Yes MIGRATION.0301 [id number] Information not available 05/09/2022 What Was The Date Of Your Most Recent Tobacco Screening? 04/06/2024 [email or web address] Information not available 04/06/2024 What Is Your Current Pack Years? 20-29packyears MIGRATION.0301 [id number] Information not available 05/09/2022 Do You Have Any Pets? No MIGRATION.030 [id number] Information not available 05/09/2022 What Is Your Relationship Status? MIGRATION.030 [id number] Information not available 05/09/2022 Do You Use Your Seat Belt Or Car Seat Routinely? Yes MIGRATION.0301 [id number] Information not available 05/09/2022 Do You Have Smoke And Carbon Monoxide Detectors In Your Home? Yes MIGRATION.0301 [id number] Information not available 05/09/2022 At What Age Did You Start Smoking Tobacco? 19 MIGRATION.0301 [id number] Information not available 05/09/2022 Are You Passively Exposed To Smoke? No MIGRATION.0301 [id number] Information not available 05/09/2022 Are There Any Smokers In Your House? No MIGRATION.0301 629684 Information not available 05/09/2022 What Types Of Sporting Activities Do You Participate In? None MIGRATION.0301 [id number] Information not available 05/09/2022 Do You Feel Stressed (tense, Restless, Nervous, Or Anxious, Or Unable To Sleep At Night)? [id number] [email or web address] Information not available 07/23/2023 Do You Use Any Illicit Or Recreational Drugs? No MIGRATION.0301 [id number] Information not available 05/09/2022 Do You Use Sunscreen Routinely? No MIGRATION.0301 080510 Information not available 05/09/2022 Has Tobacco Cessation Counseling Been Provided? No N/A MIGRATION.0301 [id number] Information not available 05/09/2022 How Many Years Have You Smoked Tobacco? 25 MIGRATION.0301 [id number] Information not available 05/09/2022 Have You Recently Traveled Abroad? No MIGRATION.0301 [id number] Information not available 05/09/2022 Do You Have Any Dietary Restrictions? No MIGRATION.0301 [id number] Information not available 05/09/2022 Do You Or Have You Ever Used Any Other Forms Of Tobacco Or Nicotine? No MIGRATION.0301 [id number] Information not available 05/09/2022 Sex: Female Functional Status Question Answer Note LastModified by Organizat ion Details LastModified Time Do you have difficulty walking or climbing stairs? Yes Uses cane. [email or web address] Information not available 07/23/2023 Do you have transportation difficulties? No MIGRATION.[id number] Information not available 05/09/2022 Are you able to walk? YESASSIST cane/walker MIGRATION.772950 7325 Information not available 05/09/2022 Do you have difficulty doing errands alone? No MIGRATION.876099 7917 Information not available 05/09/2022 Are you able to care for yourself? Yes MIGRATION.078589 [id number] Information not available 05/09/2022 Do you have difficulty dressing or bathing? No MIGRATION.921445 3561 Information not available 05/09/2022 What is your exercise level? Moderate 30 minutes a day MIGRATION.013702 7800 Information not available 05/09/2022 Mental Status Question Answer Note LastModified by Organizat ion Details LastModified Time Do you have difficulty concentrating, remembering or making decisions? No MIGRATION.[id number] Information not available 05/09/2022 Family History Relationship Description Onset Age of this Age Resolved Age Notes LastModified by Organization Details LastModified Time Father Heart disease MIGRATION.374 [id number] Not available 05/09/2022 04:41:56 Medical History Condition Response BLINDNESS N NERVE DISEASE Y RHEUMATIC FEVER N BLADDER PROBLEMS N KIDNEY STONES N MRSA N OTHER # 1 N POLIO N LUNG DISEASE/DISORDER N HISTORY OF DRUG ABUSE N RADIATION / CHEMOTHERAPY N COPD N Other # 2 N BLOOD DISEASES Y EAR OR HEARING PROBLEMS N MUMPS N SHINGLES N BOWEL PROBLEMS N DEPRESSION (INCLUDING POST ) Y STROKE/TIA N ULCERS N BENIGN PROSTATIC HYPERPLASIA N MEASLES N HYPOTENSION N MYOCARDIAL INFARCTION N OBESITY N GERD/NAUSEA Y ANEURYSM N URINARY/BLADDER/KIDNEY PROBLEMS N CORONARY ARTERY DISEASE (CAD) N ADDICTION CONCERNS N ENDOMETRIOSIS N Impotence N USE OF BLOOD THINNERS Y SKIN PROBLEMS N GASTROINTESTINAL DISORDER N PERIPHERAL VASCULAR DISEASE N MUSCLE,JOINT OR BONE PROBLEMS N GASTROINTESTINAL BLEEDING N BLOOD CLOTS N ASTHMA N CATARACTS Y ERECTILE DYSFUNCTION N VARICOSITIES N GI PROBLEMS N Low Testosterone N INFERTILITY N AIDS/HIV N CHEMOTHERAPY / RADIATION N LIVER DISEASE N MALE HYPOGONADISM N HYPERTENSION Y Deficiency N TOURETTE'S N ANXIETY DISORDER Y BLOOD TRANSFUSION N ANEMIA/BLOOD DISORDER N CHRONIC EAR INFECTIONS N BRONCHITIS N TUBERCULOSIS N GLAUCOMA N FOOT PROBLEM N DIVERTICULITIS N CHICKENPOX N SLEEP APNEA N INFECTIOUS DISEASE N HEART ARRHYTHMIA N PROSTATE N INSOMNIA N HIGH CHOLESTEROL / HYPERLIPIDEMIA Y HYPERTHYROIDISM N EYE PROBLEMS N EDEMA N CHRONIC PAIN SYNDROME N HYPOTHYROIDISM N CAROTID BLOCKAGE Y CONSTIPATION N BACK / NECK PROBLEMS N ATHEROSCLEROSIS N BREAST PROBLEMS Y DIALYSIS N ECZEMA N OSTEOPOROSIS N ARTHRITIS Y APPENDICITIS N DIABETES, TYPE N BAD TEETH N ENT N HEARTBURN / REFLUX N AUTISM SPECTRUM DISORDER (ASD) N HEPATITIS / LIVER DISEASE N GOUT N SLEEP DISORDER N ALZHEIMER'S DISEASE N Brain Problems N HERPES N DEMENTIA N HEADACHES/MIGRAINES N SEIZURES/EPILEPSY N VASCULAR DISEASE N PACEMAKER N Blood Disorder N DIZZINESS N HEART DISEASE/HEART PROBLEMS N KIDNEY DISEASE N MULTIPLE SCLEROSIS N CARDIAC ARRHYTHMIA N CANCER: SPECIFY N ATRIAL FIBRILLATION N Gall Stones N PULMONARY EMBOLISM N AUTOIMMUNE DISEASE N Gynecological History Statement/Question Response Date of Last Pap Date of Last Mammogram Date of Last Colonoscopy Most Recent Bone Density Obstetrics History GPAL:G 0 P 0 0 0 0 Immunizations Vaccine Type Date Status Note Provider Nam e and Address Organization Details Recorded Time Influenza, adjuvanted, quadrivalent, PF 3 completed NICOLE Braun, [employer] [facility] [employer] 03/25/2023 14:45:16 RSV, recombinant, protein subunit RSVpreF, adjuvant reconstituted, 0.5 mL, PF 3 completed NICOLE Braun, [employer] [facility] [employer] [facility] 03/25/2023 14:45:31 COVID-19, mRNA, LNP-S, PF, 30 mcg/0.3 mL dose 4 completed NICOLE Braun, [employer] [facility] [employer] 03/25/2023 14:45:52 COVID-19, mRNA, LNP-S, PF, 30 mcg/0.3 mL dose 1 completed Not Available [facility] 11/14/2022 07:41:23 SARS-COV-2 (COVID-19) vaccine, UNSPECIFIED 1 completed Not Available [facility] 11/14/2022 07:41:23 SARS-COV-2 (COVID-19) vaccine, UNSPECIFIED 1 completed Not Available [facility] 11/14/2022 07:41:23 Influenza, split virus, trivalent, preservative 9 completed Not Available [facility] 11/14/2022 07:41:23 influenza, unspecified formulation 8 completed Not Available [facility] 11/14/2022 07:41:23 COVID-19, mRNA, LNP-S, bivalent, PF, 30 mcg/0.3 mL dose 2 completed Not Available [facility] 11/14/2022 07:41:23 COVID-19, mRNA, LNP-S, PF, 100 mcg/0.5mL dose or 50 mcg/0.25mL dose 2 completed Not Available [facility] 11/14/2022 07:41:23 Influenza, split virus, trivalent, preservative 0 completed Not Available [facility] 11/14/2022 07:41:23 Influenza, high-dose, trivalent, PF 7 completed Not Available [facility] 11/14/2022 07:41:23 Past Encounters Encounter ID Performer Location Encounter Start Date Encounter Closed Date Diagnosis/Indication Diagnosis SNOMED-CT Code Diagnosis ICD10 Code Diagnosis Note [id number] [facility] [place] [address] , [place] [address] 06/27/2020 00:00:00 06/27/2020 14:41:05 [id number] [facility] [place] [address] , [place] [address] 11/07/2020 00:00:00 12/05/2020 10:53:41 [id number] [facility] [place] [address] , [place] [address] 04/10/2021 00:00:00 04/10/2021 15:01:38 [id number] [facility] General Surgery [address] [address] 05/11/2021 00:00:00 05/11/2021 13:20:40 [id number] [facility] General Surgery [address] [address] 06/15/2021 00:00:00 06/15/2021 11:15:14 [id number] [facility] [place] [address] , [place] [address] 07/31/2021 00:00:00 07/31/2021 15:09:24 [id number] [facility] [place] [address] [place] [address] 12/04/2021 00:00:00 12/04/2021 15:28:38 [id number] Greyson olivo MD [facility] Internal Med [place] [address] [facility] [place] [address] 06/04/2022 14:19:56 06/04/2022 15:24:41 Screening - NAD [id number] Z13.9 C-scope: Get this arranged, declines understand s the risksC-sco pe: 07/05/2021 : next in 5 years: Dr Chawla Mammogram: Get this arranged, declines, do SBE PAP: Get this arranged, declines DEXA: Declined Get yearly flu shotGet TdapUTD on #13 and #23 at [facility] on shingles vaccine at [facility] in [facility] on COVID 19 vaccine RTC In 6 monthsDo labs prior to aptER if worseShe did verbalize her understand ing of the above Coronary arteriosclerosis 87835264 I25.10 US carotid 02/15/2021 On plavixDoes Cesar Thomas [facility] Essential hypertension 59060529 I10 On amlodipine 10mg dailyOn plavixOn HCTZ 25mg dailyON losartan 100mg dailyNot on propranolo l 20mg dailyOn PRN lasix as she does have intermitte nt LE wild pitting edema, add K with this also Advised to cut back on salt and elevate legsGet labsDoes well Hyperlipidemia 28285215 E78.5 On atorvastat in 80mg daily Get labs 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 Not on sertraline 150mg daily Not on mirtazapin e 30mg daily filled by Dr will Not suicidal or homicidal She decided with Dr Will to wean off these meds, does very wellSeen by Dr Will, no further apts with her Gastroesop hageal reflux disease without esophagitis 726786345 K21.9 On pantoprazo le Take as neededDoes well Parkinson's disease 4904 9000 G20 On carbidopa- levodopa Sees neurology Dr Greenberg get another apt with neurology Did see Dr Jimenez, NS, s/p MRI c-spine: 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, 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, moderate DJD Today 07/31/2021 , she states that she did see Dr Calderon and is now to get a MRI test again, she was told by Dr Calderon that she does not have PD OV 12/04/2021 :SPECT CT 09/05/[address] Calderon OV 06/04/2022 :Takes carbidopa- levodopaOn propranolo lSees Dr Calderon Thrombocyt openic disorder 808135960 D69.[address] Tierney last OV 07/11/2021 , f/u yearly US abd 09/25/2019 : Neg Increased liver function 75115432 R94.5 Get labs Adult heal th examination 248609382 Z00.00 Screening for disorder 032236642 Z13.9 [id number] Greyson olivo MD [facility] Internal [facility] [place] [address] [facility] [place] [facility] [place] [address] 12/03/2022 14:22:46 12/03/2022 15:11:44 Screening - NAD [id number] Z13.9 C-scope: Get this arranged, declines understand s the risksC-sco pe: 07/05/2021 : next in 5 years: Dr Cummins noted some diarrhea better now 12/03/2022 Mammogram: Get this arranged, declines, do SBE PAP: Get this arranged, declines DEXA: Declined Get yearly flu shotGet TdapUTD on #13 and #23 at [facility] on shingles vaccine at [facility] in [facility] on COVID 19 vaccine, get latestCan do RSV vaccine RTC In 6 monthsDo labs prior to aptER if worseShe and her did verbalize her understand ing of the above Coronary arteriosclerosis 23169720 I25.10 US carotid 02/15/2021 On plavixDohugh Thomas [facility] Essential hypertension 05907616 I10 On amlodipine 10mg dailyOn plavixOn HCTZ 25mg dailyON losartan 100mg dailyNot on propranolo l 20mg dailyOn PRN lasix as she does have intermitte nt LE wild pitting edema, add K with this also Advised to cut back on salt and elevate legsGet labsDoes well Hyperlipidemia 58482015 E78.5 On atorvastat in 80mg daily Get labs Moderate r ecurrent major depression 95436800 F33.1 Not on sertraline 150mg daily Not on mirtazapin e 30mg daily filled by Dr will Not suicidal or homicidal She decided with Dr Will to wean off these meds, does very wellSeen by Dr Will, no further apts with her Gastroesop hageal reflux disease without esophagitis 080431643 K21.9 On pantoprazo le Take as neededDoes well Parkinson's disease 4904 9000 G20 Not on carbidopa- levodopa Sees neurology Dr Greenberg get another apt with neurology Did see Dr Jimenez, NS, s/p MRI c-spine: 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, 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, moderate DJD Today 07/31/2021 , she states that she did see Dr Calderon and is now to get a MRI test again, she was told by Dr Calderon that she does not have PD OV 12/04/2021 :SPECT CT 09/05/2021 Takes carbidopa- levodopaOn propranolo lSees Dr Calderon 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 D69.[address] Tierney last OV 07/11/2021 , f/u yearly US abd 09/25/2019 : Neg Increased liver function 55316098 R94.5 LFTs WNL 11/26/2022 Upper resp iratory infection 72088754 J06.9 Does well now [id number] Greyson olivo MD [facility] Internal Med [place] [address] [facility] [address] 03/25/2023 14:32:16 03/25/2023 15:05:49 Screening - NAD 797276091 Z13.9 C-scope: Get this arranged, declines understand s the risksC-sco pe: 07/05/2021 : next in 5 years: Dr Cummins noted some diarrhea better now 12/03/2022 Mammogram: Get this arranged, declines, do SBE PAP: Get this arranged, declines DEXA: DeclinedDe nies any complaints 03/25/2023 Get yearly flu shotGet TdapUTD on #13 and #23 at [facility] on shingles vaccine at [facility] in [facility] on COVID 19 vaccine, get latestCan do RSV vaccine RTC In 6 monthsDo labs prior to aptER if worseShe and her did verbalize her understand ing of the above Coronary arteriosclerosis 03213848 I25.10 US carotid 02/15/[address] Thomas [facility] Essential hypertension 20310162 I10 Not on amlodipine 10mg dailyOn plavixOn HCTZ 25mg dailyOn losartan 100mg dailyNot on propranolo l 20mg dailyOn PRN lasix as she does have intermitte nt LE wild pitting edema, add K with this also Advised to cut back on salt and elevate legsGet labsDoes well Hyperlipidemia 99671968 E78.5 On atorvastat in 80mg daily Get labs Moderate r ecurrent major depression 29186739 F33.1 Not on sertraline 150mg daily Not on mirtazapin e 30mg daily filled by Dr will Not suicidal or homicidal She decided with Dr Will to wean off these meds, does very wellSeen by Dr Will, no further apts with her Gastroesop hageal reflux disease without esophagitis 090236332 K21.9 On pantoprazo le Take as neededDoes well Parkinson's disease 4904 9000 G20.A1 Not on carbidopa- levodopa Sees neurology Dr Greenberg get another apt with neurology Did see Dr Jimenez, NS, s/p MRI c-spine: 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, 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, moderate DJD Today 07/31/2021 , she states that she did see Dr Calderon and is now to get a MRI test again, she was told by Dr Calderon that she does not have PD OV 12/04/2021 :SPECT CT 09/05/2021 Takes carbidopa- levodopaOn propranolo lSees Dr Calderon OV 03/25/2023 :Did see Mini Tejada [facility] 10/12/2022 , to be on the propranolo l and RTC PRN Thrombocyt openic disorder 193114501 D69.[address] Tierney last OV 07/11/2021 , f/u yearly US abd 09/25/2019 : Neg Increased liver function 22954869 R94.5 LFTs WNL 11/26/2022 , 03/18/2023 Chronic ki dney disease 455462230 N18.9 Get an apt with nephrology [id number] Greyson olivo MD [facility] Internal Med [facility] [address] [facility] [place] [address] 07/23/2023 14:32:32 07/23/2023 15:37:52 Screening - NAD 182349158 Z13.9 C-scope: Get this arranged, declines understand s the [facility]-sco pe: 07/05/2021 : next in 5 years: Dr Cummins noted some diarrhea better now 12/03/2022 Mammogram: Get this arranged, declines, do SBE PAP: Get this arranged, declines DEXA: DeclinedDe nies any complaints 03/25/2023 Get yearly flu shotGet TdapUTD on #13 and #23 at [facility] on COVID 19 vaccine, get latestCan do RSV vaccine RTC In 6 monthsDo labs prior to aptER if worseShe and her did verbalize her understand ing of the above 40 mintues spent with the patient and her , discussed her diarrhea and URI sx and reviewed labs Coronary arteriosclerosis 91126976 I25.10 US carotid 02/15/2021 US carotid 05/20/2023 ECHO : EF 65% On plavixGrayson Thomas [facility] Essential hypertension 07615433 I10 Not on amlodipine 10mg dailyOn plavixOn HCTZ 25mg dailyOn losartan 100mg dailyOn propranolo l 20mg daily, given by Mini Smalls PRN lasix as she does have intermitte nt LE wild pitting edema, add K with this also Advised to cut back on salt and elevate legsGet labsDoes well Hyperlipidemia 91343722 E78.5 On atorvastat in 80mg daily Get labs Moderate r ecurrent major depression 17848758 F33.1 Not on sertraline 150mg daily Not on mirtazapin e 30mg daily filled by Dr will Not suicidal or homicidal She decided with Dr Will to wean off these meds, does very wellSeen by Dr Will, no further apts with her Gastroesop hageal reflux disease without esophagitis 046498480 K21.9 On pantoprazo le Take as neededDoes well Parkinson's disease 4904 9000 G20.A1 Not on carbidopa- levodopa Sees neurology Dr Greenberg get another apt with neurology Did see Dr Jimenez, NS, s/p MRI c-spine: 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, 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, moderate DJD Today 07/31/2021 , she states that she did see Dr Calderon and is now to get a MRI test again, she was told by Dr Calderon that she does not have PD OV 12/04/2021 :SPECT CT 09/05/2021 Takes carbidopa- levodopaOn propranolo lSees Dr Calderon OV 03/25/2023 :Did see Miin Tejada [facility] 10/12/2022 , to be on the propranolo l and RTC PRN OV 07/23/2023 :On propranolo l, OK to renew Thrombocyt openic disorder 030023817 D69.[address] Tierney last OV 07/11/2021 , f/u yearlyDr Kelsy 07/12/2023 , to take weekly b12 US abd 09/25/2019 : Neg Increased liver function 68767467 R94.5 LFTs WNL 11/26/2022 , 03/18/2023 US liver: 12/13/2021 Hep panel/GGT Neg 05/28/2022 Declines any more testing Chronic ki dney disease 900127100 N18.9 Get an apt with nephrology Diarrhea 24095505 R19.7 Mild, no BRBPR or heatochezi a, no abd painWill get on imodium and see if this helps Upper resp iratory infection 94987165 J06.9 Get on levaquin 750mg dailyGet on zyrtecER if not betterGet tested for COVID 19, strep and flu Adult heal th examination 478281112 Z00.00 Screening for disorder 093780568 Z13.9 [id number] Greyson olivo MD [facility] Internal Med [place] [address] [facility] [place] [address] 11/04/2023 15:01:50 11/04/2023 16:03:28 Screening - NAD 222357269 Z13.9 C-scope: Get this arranged, declines understand s the risksC-sco pe: 07/05/2021 : next in 5 years: Dr Cummins noted some diarrhea better now 12/03/2022 Mammogram: Get this arranged, declines, do SBE PAP: Get this arranged, declines DEXA: DeclinedDe nies any complaints 03/25/2023 Get yearly flu shotGet TdapUTD on #13 and #[facility] at [facility] on shingles vaccine at [facility] in [facility] on COVID 19 vaccine, get latestCan do RSV vaccine RTC In 6 monthsDo labs prior to aptER if worseShe and her did verbalize her understand ing of the above Coronary arteriosclerosis 85020769 I25.10 US carotid 02/15/2021 US carotid 05/20/2023 ECHO : EF 65% On plavixDoes Cesar Thomas [facility] Essential hypertension 08145271 I10 Not on amlodipine 10mg dailyOn plavixOn HCTZ 25mg dailyOn losartan 100mg dailyOn propranolo l 20mg dailyOn PRN lasix as she does have intermitte nt LE wild pitting edema, add K with this also Advised to cut back on salt and elevate legsGet labsDoes well Hyperlipidemia 73286310 E78.5 On atorvastat in 80mg daily Get labs Moderate r ecurrent major depression 19585938 F33.1 Not on sertraline 150mg daily Not on mirtazapin e 30mg daily filled by Dr will Not suicidal or homicidal She decided with Dr Will to wean off these meds, does very wellSeen by Dr Will, no further apts with her Gastroesop hageal reflux disease without esophagitis 301598090 K21.9 On pantoprazo le Take as neededDoes well Parkinson's disease 4904 9000 G20.A1 Not on carbidopa- levodopa Sees neurology Dr Greenberg get another apt with neurology Did see Dr Jimenez, NS, s/p MRI c-spine: 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, 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, moderate DJD Today 07/31/2021 , she states that she did see Dr Calderon and is now to get a MRI test again, she was told by Dr Calderon that she does not have PD OV 12/04/2021 :SPECT CT 09/05/2021 Takes carbidopa- levodopaOn propranolo lSees Dr Calderon OV 03/25/2023 :Did see Mini Tejada [facility] 10/12/2022 , to be on the propranolo l and RTC PRN OV 07/23/2023 :On propranolo l, OK to renew OV 11/04/2023 :On propranolo l, does well Thrombocyt openic disorder 726650799 D69.[address] Tierney last OV 07/11/2021 , f/u yearlyDr Kelsy 07/12/2023 , to take weekly b12 US abd 09/25/2019 : Neg Increased liver function 14250569 R94.5 LFTs WNL 11/26/2022 , 03/18/2023 US liver: 12/13/2021 Hep panel/GGT Neg 05/28/2022 Declines any more testing Chronic ki dney disease 862916409 N18.9 Get an apt with nephrology Diarrhea 15928328 R19.7 Mild, no BRBPR or heatochezi a, no abd painWill get on imodium and see if this helps Allergic rhinitis 166008 04 J30.9 On flonaseOn cetrizine [id number] Brittany Lynn, MA [facility] Primary Care [address] [place] [address] 03/12/2024 14:03:34 03/12/2024 14:49:04 [id number] Greyson olivo MD [facility] Primary Care [facility] [address] [place] [address] 04/06/2024 15:06:40 04/06/2024 16:42:21 Screening - NAD 649264018 Z13.9 C-scope: Get this arranged, declines understand s the [facility]-sco pe: 07/05/2021 : next in 5 years: Dr Cummins noted some diarrhea better now 12/03/2022 Mammogram: Get this arranged, declined, do SBE PAP: Get this arranged, declined DEXA: DeclinedDe nies any complaints 03/25/2023 Get yearly flu shotGet TdapUTD on #13 and #23 at [facility] on shingles vaccine at [facility] in [facility] on COVID 19 vaccine, get latestCan do RSV vaccine RTC In 6 monthsDo labs prior to aptER if worseShe and her did verbalize her understand ing of the above Coronary arteriosclerosis 45874864 I25.10 US carotid 02/15/2021 US carotid 05/20/2023 ECHO : EF 65% On plavixDoes Cesar Thomas [facility] Essential hypertension 81427484 I10 Not on amlodipine 10mg dailyOn plavixOn HCTZ 25mg dailyOn losartan 100mg dailyOn propranolo l 20mg dailyOn PRN lasix as she does have intermitte nt LE wild pitting edema, add K with this also Advised to cut back on salt and elevate legsGet labsDoes well Hyperlipidemia 07607990 E78.5 On atorvastat in 80mg daily Get labs Moderate r ecurrent major depression 84936869 F33.1 Not on sertraline 150mg dailyNot on mirtazapin e 30mg daily filled by Dr Leija suicidal or homicidal She decided with Dr Will to wean off these meds, does very wellSeen by Dr Will, no further apts with her Gastroesop hageal reflux disease without esophagitis 134954302 K21.9 On pantoprazo le Take as neededDoes well Parkinson's disease 4904 9000 G20.A1 Not on carbidopa- levodopa Sees neurology Dr Greenberg get another apt with neurology Did see Dr Jimenez, NS, s/p MRI c-spine: 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, 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, moderate DJD Today 07/31/2021 , she states that she did see Dr Calderon and is now to get a MRI test again, she was told by Dr Calderon that she does not have PD OV 12/04/2021 :SPECT CT 09/05/2021 Takes carbidopa- levodopaOn propranolo lSees Dr Calderon OV 03/25/2023 :Did see Mini Tejada [facility] 10/12/2022 , to be on the propranolo l and RTC PRN OV 07/23/2023 :On propranolo l, OK to renew OV 11/04/2023 :On propranolo l, does well OV 04/06/2024 : On propranolo l does well on this Thrombocyt openic disorder 075281564 D69.[address] Tierney last OV 07/11/2021 , f/u yearlyDr Kelsy 07/12/2023 , to take weekly b12 US abd 09/25/2019 : Neg Increased liver function 48720267 R94.5 LFTs WNL 11/26/2022 , 03/18/2023 US liver: 12/13/2021 Hep panel/GGT Neg 05/28/2022 Declines any more testing Chronic ki dney disease 991066615 N18.9 Get an apt with nephrology Diarrhea 36334709 R19.7 Mild, no BRBPR or heatochezi a, no abd painWill get on imodium and see if this helps Allergic rhinitis 094318 04 J30.9 On flonaseOn cetrizine Closed fra cture of neck of left femur 8981046494 6868425 S72.092A Admitted 01/24/2024 , fall after sneezing, s/p surgery Dr Riley Anemia 883758155 D64.9 S/p fall and hip fracture, now anemic, will get a referral to Dr Tierney Upper resp iratory infection 63420563 J06.9 Get on levaquin 750mg dailyGet on zyrtecER if not betterGet tested for COVID 19, strep and flu Health Concerns Section Related Observation LastModified by Organization Detai ls LastModified Time None Recorded Concern Status LastModified by Organization Details LastModified Time None Recorded Advance Directives Directive Y: Patient to bring copy for chart. Payers Encounter Date Sequence Insurance Name Policy Number Policy Hernandez Covered Member ID Hernandez Member ID Guarantor Name 03/25/2023 1 [place] Keerthi Bergman [id number] Keerthi Bergman 03/25/2023 2 [place] [id number] Keerthi Bergman [id number] Keerthi Bergman 07/23/2023 [place] Keerthi Bergman [id number] Keerthi Bergman 07/23/2023 2 [place] [id number] Keerthi Bergman [id number] Keerthi Bergman 11/04/2023 1 [place] Keerthi Bergman [id number] Keerthi Bergman 11/04/2023 2 [place] [id number] Keerthi Bergman [id number] Keerthi Bergman 04/06/2024 1 [place] Keerthi Bergman [id number] Keerthi Bergman 04/06/2024 2 [place] [id number] Keerthi Bergman [id number] Keerthi Bergman Notes Date Note Type Note Provider Name and Address Organization Details Recorded Time 03/25/2023 text/html Here to stefania Hall PMD: Dr Espinoza Hx:HTNHLDPDDepression Reviewed social family and surgical historyHere to discuss the above and get routine labsShduncan feels that she is doing well at this timeOV 11/20/17:ACV:Here with L upper back and shoulder painChanging a shower curtain a month ago and started hurting, no heavy liftingPain in the upper back and goes into the shoulderR HDHas a hx of syringomylia, she does see Dr Greenberg for her PDNo N/T in the UE or LENo bowel or bladder incontinenceHas not taken any meds except for ibuprofen with some reliefNo aggravating factors but prolonged sitting hurtsPain is a 8/10 at it worseOV 01/20/18:She is here for her routine aptShe is doing well, she states that she has not done any new labsOV 03/25/18:ACV:Here for URI sx since 2 weeksShduncan has a coughProductive for yellow sputumNo blood, no chest pain or SOBNo rashNo wheezing, or chest painOV 04/21/18:Here for her routine aptShe did do the labs on 03/26/18 and is here to review theseShe feels well today OV 08/18/18:Here for her routine aptShe did do the labs and is also here for her MWVShe states that she did burn her L hand while cooking and wants to get this looked atSome pain, some redness notedOV 12/15/18:Here for her routine aptShe feels wellShe did do the labsOV 08/31/2019:Here for her routine aptShe feels wellShe did the labs and is here to review theseWants a refill on the amlodipine and PPIOV 12/28/2019;Here for her routine aptShe feels wellShe did do the labsOV 06/27/2020:Here for her routine aptShe feels wellShe did do the labs on 06/21/2020 and is here to review these OV 11/07/2020:Here for her routine aptShe is doing wellC/o wild edema in the ankles, states that she does eat salty food and processed foodsShe is here for her MWV alsoHere with her husbandShe did do the labs on 10/31/2020OV 04/10/2021:Here for her routine aptShe is doing well,but states that she has a hernia in the L groin, non tenderShe is here with her husbandShe did do the labs on 2OV 07/31/2021:Here for her routine aptShe feels wellShe did do the labs on 2OV 12/04/2021:Here for her f/u apt with her , she feels well, she did do the labs o 11/21/2021 OV 06/04/2022:Here for her f/u apt she is here with her , does well at this time, did do the MWV also OV 12/03/2022: Here for her f/u apt, she is here with her , recently had a bout of URI, did well now, did do the labs OV 03/25/2022: Here for her f/u apt, she feels well today, does c/o fingers feeling cold, she did do the labs Greyson Rizo MD [address] [facility], [facility] [address], [place], [address], [facility] [employer] [facility] 03/25/2023 15:56:34 07/23/2023 text/html Here to stefania Hall PMD: Dr AnandhipPast Hx:HTNHLDPDDepression Reviewed social family and surgical historyHere to discuss the above and get routine labsShe feels that she is doing well at this timeOV 11/20/17:ACV:Here with L upper back and shoulder painChanging a shower curtain a month ago and started hurting, no heavy liftingPain in the upper back and goes into the shoulderR HDHas a hx of syringomylia, she does see Dr Greenberg for her PDNo N/T in the UE or LENo bowel or bladder incontinenceHas not taken any meds except for ibuprofen with some reliefNo aggravating factors but prolonged sitting hurtsPain is a 8/10 at it worseOV 01/20/18:She is here for her routine aptShe is doing well, she states that she has not done any new labsOV 03/25/18:ACV:Here for URI sx since 2 weeksShe has a coughProductive for yellow sputumNo blood, no chest pain or SOBNo rashNo wheezing, or chest painOV 04/21/18:Here for her routine aptShe did do the labs on 03/26/18 and is here to review theseShe feels well today OV 08/18/18:Here for her routine aptShe did do the labs and is also here for her MWVShe states that she did burn her L hand while cooking and wants to get this looked atSome pain, some redness notedOV 12/15/18:Here for her routine aptShe feels Beronica did do the labsOV 08/31/2019:Here for her routine aptShe feels Beronica did the labs and is here to review theseWants a refill on the amlodipine and PPIOV 12/28/2019;Here for her routine aptShe feels Beronica did do the labsOV 06/27/2020:Here for her routine aptShe feels Mirianmisty did do the labs on 06/21/2020 and is here to review these OV 11/07/2020:Here for her routine aptShe is doing wellC/o wild edema in the ankles, states that she does eat salty food and processed foodsShe is here for her MWV alsoHere with her husbandShe did do the labs on 10/31/2020OV 04/10/2021:Here for her routine aptShe is doing well,but states that she has a hernia in the L groin, non tenderShe is here with her husbandShe did do the labs on 2OV 07/31/2021:Here for her routine aptShe feels Mirianmisty did do the labs on 2OV 12/04/2021:Here for her f/u apt with her , she feels well, she did do the labs o 11/21/2021 OV 06/04/2022:Here for her f/u apt she is here with her , does well at this time, did do the MWV also OV 12/03/2022: Here for her f/u apt, she is here with her , recently had a bout of URI, did well now, did do the labs OV 03/25/2022: Here for her f/u apt, she feels well today, does c/o fingers feeling cold, she did do the labs OV 07/23/2023: Here for her f/u apt and MWV, she is doing well today, has noted some sinus congestion and a mild cough, feels that this could be from her allergies, also has noted intermittent diarrhea, no blood in urine or stool, no abd pain, no nausea or vomiting Greyson Rizo MD [address] [facility], [facility] [address], [place], [id number], [place] [facility] 07/24/2023 18:08:32 11/04/2023 text/html Here to stefania Hall PMD: Dr AnandhipPast Hx:HTNHLDPDDepression Reviewed social family and surgical historyHere to discuss the above and get routine labsShe feels that she is doing well at this timeOV 11/20/17:ACV:Here with L upper back and shoulder painChanging a shower curtain a month ago and started hurting, no heavy liftingPain in the upper back and goes into the shoulderR HDHas a hx of syringomylia, she does see Dr Greenberg for her PDNo N/T in the UE or LENo bowel or bladder incontinenceHas not taken any meds except for ibuprofen with some reliefNo aggravating factors but prolonged sitting hurtsPain is a /10 at it worseOV 01/20/18:She is here for her routine aptShe is doing well, she states that she has not done any new labsOV 03/25/18:ACV:Here for URI sx since 2 weeksShe has a coughProductive for yellow sputumNo blood, no chest pain or SOBNo rashNo wheezing, or chest painOV 04/21/18:Here for her routine aptShe did do the labs on 03/26/18 and is here to review theseShe feels well today OV 08/18/18:Here for her routine aptShe did do the labs and is also here for her MWVShe states that she did burn her L hand while cooking and wants to get this looked atSome pain, some redness notedOV 12/15/18:Here for her routine aptShe feels wellShe did do the labsOV 08/31/2019:Here for her routine aptShe feels Beronica did the labs and is here to review theseWants a refill on the amlodipine and PPIOV 12/28/2019;Here for her routine aptShe feels Mirianhe did do the labsOV 06/27/2020:Here for her routine aptShe feels wellShe did do the labs on 06/21/2020 and is here to review these OV 11/07/2020:Here for her routine aptShe is doing wellC/o wild edema in the ankles, states that she does eat salty food and processed foodsShe is here for her MWV alsoHere with her husbandShe did do the labs on 10/31/2020OV 04/10/2021:Here for her routine aptShe is doing well,but states that she has a hernia in the L groin, non tenderShe is here with her husbandShe did do the labs on 2OV 07/31/2021:Here for her routine aptShe feels wellShe did do the labs on 2OV 12/04/2021:Here for her f/u apt with her , she feels well, she did do the labs o 11/21/2021 OV 06/04/2022:Here for her f/u apt she is here with her , does well at this time, did do the MWV also OV 12/03/2022: Here for her f/u apt, she is here with her , recently had a bout of URI, did well now, did do the labs OV 03/25/2022: Here for her f/u apt, she feels well today, does c/o fingers feeling cold, she did do the labs OV 07/23/2023: Here for her f/u apt and MWV, she is doing well today, has noted some sinus congestion and a mild cough, feels that this could be from her allergies, also has noted intermittent diarrhea, no blood in urine or stool, no abd pain, no nausea or vomiting OV 11/04/2023: Here for her routine apt, she is doing well today, she is here with Grey Rizo MD [address] [place] [address], [address], [id number], [facility] 11/04/2023 17:52:58 04/06/2024 text/html Here to stefania Hall PMD: Dr AnandhipPast Hx:HTNHLDPDDepression Reviewed social family and surgical historyHere to discuss the above and get routine labsShe feels that she is doing well at this timeOV 11/20/17:ACV:Here with L upper back and shoulder painChanging a shower curtain a month ago and started hurting, no heavy liftingPain in the upper back and goes into the shoulderR HDHas a hx of syringomylia, she does see Dr Greenberg for her PDNo N/T in the UE or LENo bowel or bladder incontinenceHas not taken any meds except for ibuprofen with some reliefNo aggravating factors but prolonged sitting hurtsPain is a 8/10 at it worseOV 01/20/18:She is here for her routine aptShe is doing well, she states that she has not done any new labsOV 03/25/18:ACV:Here for URI sx since 2 weeksShe has a coughProductive for yellow sputumNo blood, no chest pain or SOBNo rashNo wheezing, or chest painOV 04/21/18:Here for her routine aptShe did do the labs on 03/26/18 and is here to review theseShe feels well today OV 08/18/18:Here for her routine aptShe did do the labs and is also here for her MWVShe states that she did burn her L hand while cooking and wants to get this looked atSome pain, some redness notedOV 12/15/18:Here for her routine aptShe feels wellShe did do the labsOV 08/31/2019:Here for her routine aptShe feels Beronica did the labs and is here to review theseWants a refill on the amlodipine and PPIOV 12/28/2019;Here for her routine aptShe feels wellShe did do the labsOV 06/27/2020:Here for her routine aptShe feels wellShe did do the labs on 06/21/2020 and is here to review these OV 11/07/2020:Here for her routine aptShe is doing wellC/o wild edema in the ankles, states that she does eat salty food and processed foodsShe is here for her MWV alsoHere with her husbandShe did do the labs on 10/31/2020OV 04/10/2021:Here for her routine aptShe is doing well,but states that she has a hernia in the L groin, non tenderShe is here with her husbandShe did do the labs on 2OV 07/31/2021:Here for her routine aptShe feels wellShe did do the labs on 2OV 12/04/2021:Here for her f/u apt with her , she feels well, she did do the labs o 11/21/2021 OV 06/04/2022:Here for her f/u apt she is here with her , does well at this time, did do the MWV also OV 12/03/2022: Here for her f/u apt, she is here with her , recently had a bout of URI, did well now, did do the labs OV 03/25/2022: Here for her f/u apt, she feels well today, does c/o fingers feeling cold, she did do the labs OV 07/23/2023: Here for her f/u apt and MWV, she is doing well today, has noted some sinus congestion and a mild cough, feels that this could be from her allergies, also has noted intermittent diarrhea, no blood in urine or stool, no abd pain, no nausea or vomiting OV 11/04/2023: Here for her routine apt, she is doing well today, she is here with Grey OV 04/06/2024: Here for her f/u apt, she is doing well today, has noted some URI sx,She has a cough and sinus drainageNon productiveNo blood, no chest pain or SOBNo wheezing, or chest pain Greyson Rizo MD [address] [facility], [facility] [address], [place], [address], [place] [facility] 04/06/2024 16:36:18 OBGyn Episode No OBEpisode recorded.
== END 2024-06-22 12:03 | disposition home or self-care (01) ==
PROVIDERS: PCP Internal Medicine; Visit Provider Specialist
DX: E11.65 Type 2 diabetes mellitus with hyperglycemia (principal); N18.30 Chronic kidney disease, stage 3 unspecified; E87.20 Acidosis, unspecified; D64.9 Anemia, unspecified; E78.5 Hyperlipidemia, unspecified; E55.9 Vitamin D deficiency, unspecified; R35.0 Frequency of micturition; E78.41 Elevated Lipoprotein(a); E21.3 Hyperparathyroidism, unspecified; R94.6 Abnormal results of thyroid function studies
CPT/HCPCS: 36415; 82595